=== PATIENT | male | born 1970 | race Caucasian/White ===

== ENCOUNTER 2017-09-17 12:59 | Emergency (ER) | payer MEDICARE, MEDICAID ==
[2017-09-17 12:59] VITALS: BMI 29.9
[2017-09-17 13:05] VITALS: RESP 18; TEMP 97; O2SAT 98
--- NOTE | 2017-09-17 13:58 | ED PDOC ---
HPI: Hypertension/Hypotension Time Seen by Provider: 09/17/17 13:26 Chief Complaint (Nursing): High Blood Pressure Chief Complaint (Provider): High Blood Pressure History Per: Patient History/Exam Limitations: no limitations Onset/Duration Of Symptoms: Days Current Symptoms Are (Timing): Still Present Additional Complaint(s): Gold Ambrose is a 47 year old male with a past medical history of diabetes who presents to the ED complaining of elevated blood pressure. Patient was referred from [facility] due to elevated blood pressure. Patient is newly diagnosed hypertensive. Confirms mild dizziness, denies chest pain, shortness of breath, weakness, or paresthesia. PMD: Yolande Momin MD Past Medical History Reviewed: Historical Data, Nursing Documentation, Vital Signs Vital Signs: Last Vital Signs Temp 97 F L 09/17/17 13:03 Pulse 73 09/17/17 13:03 Resp 18 09/17/17 13:03 BP 196/112 H 09/17/17 13:03 Pulse Ox 98 09/17/17 13:03 - Medical History PMH: Arthritis, Diabetes, HTN, Hypercholesterolemia, Chronic Kidney Disease - Surgical History Surgical History: No Surg Hx - Family History Family History: States: Diabetes - Home Medications Home Medications: Ambulatory Orders Medication Instructions Recorded Ammonium Lactate [Amlactin] 1 appl TOP DAILY #0 lot 07/15/15 Atorvastatin [Lipitor] 40 mg PO DAILY #0 tab 07/15/15 Brimonidine Tartrate [Alphagan P] 1 drop RIGHTEYE BID #0 lyubov 07/15/15 Ciprofloxacin 0.3% [Ciloxan 0.3% 0 drop TOP BID #0 bottle 07/15/15 Ophth SOLN] Diclofenac Sodium [Diclofenac 1 drop LEFTEYE TID #0 lyubov 07/15/15 Sodium 2.5 ml] Dorzolamide 2%/Timolol 0.5% 1 drop RIGHTEYE BID #0 bottle 07/15/15 [Cosopt 2%-0.5% Opht] Ergocalciferol (Vitamin D2) 50,000 unit PO QWK #0 cap 07/15/15 [Vitamin D2] Famotidine [Pepcid] 20 mg PO DAILY #0 tab 07/15/15 Furosemide [Lasix] 40 mg PO DAILY #0 tab 07/15/15 Insulin Lispro Mix 75/25 [HumaLOG 30 units SC Q12H #0 ml 07/15/15 Mix 75/25] Lisinopril/Hydrochlorothiazide 1 tab PO DAILY #0 tab 07/15/15 [Lisinopril-Hctz 20-12.5 mg Tab] Metoprolol Tartrate 25 mg PO BID 60 Days tab 07/15/15 amLODIPine [Norvasc] 10 mg PO DAILY #0 tab 07/15/15 Azithromycin [Zithromax Z-Winston] 250 mg PO DAILY #6 tab 07/31/15 Fluticasone Propionate [Flonase] 1 spr NS BID #1 bottle 07/31/15 - Allergies Allergies/Adverse Reactions: Allergies Allergy/AdvReac Type Severity Reaction Status Date / Time No Known Allergies Allergy Verified 07/31/15 14:24 Review of Systems ROS Statement: Except As Marked, All Systems Reviewed And Found Negative Constitutional: Positive for: Other (elevated blood pressure) Cardiovascular: Negative for: Chest Pain Respiratory: Negative for: Shortness of Breath Neurological: Positive for: Dizziness (mild). Negative for: Weakness, Other ( paresthesia) Physical Exam - Reviewed Nursing Documentation Reviewed: Yes Vital Signs Reviewed: Yes - Physical Exam Appears: Positive for: Well, Non-toxic, No Acute Distress Head Exam: Positive for: ATRAUMATIC, NORMAL INSPECTION, NORMOCEPHALIC Skin: Positive for: Normal Color, Warm, Dry Eye Exam: Positive for: EOMI, Normal appearance, PERRL Neck: Positive for: Normal, Painless ROM, Supple Cardiovascular/Chest: Positive for: Regular Rate, Rhythm. Negative for: Murmur Respiratory: Positive for: Normal Breath Sounds. Negative for: Respiratory Distress Gastrointestinal/Abdominal: Positive for: Normal Exam, Bowel Sounds, Soft. Negative for: Tenderness Back: Positive for: Normal Inspection. Negative for: L CVA Tenderness, R CVA Tenderness, Vertebral Tenderness Extremity: Positive for: Normal ROM. Negative for: Pedal Edema, Deformity Neurologic/Psych: Positive for: Alert, Oriented (AAO x3). Negative for: Motor/ Sensory Deficits - ECG O2 Sat by Pulse Oximetry: 98 (RA) Pulse Ox Interpretation: Normal Medical Decision Making Medical Decision Making: Time: 13:30 Initial Impression: Hypertension Plan: --Reevaluation Scribe Attestation: Documented by Jewel Guerrero acting as a scribe for Jonathon Caal MD. MD [place] Attestation: All medical record entries made by the Scribe were at my direction and personally dictated by me. I have reviewed the chart and agree that the record accurately reflects my personal performance of the history, physical exam, medical decision making, and the department course for this patient. I have also personally directed, reviewed, and agree with the discharge instructions and disposition. Disposition - Clinical Impression Clinical Impression: HTN (hypertension) - Patient ED Disposition Is Patient to be Admitted: No Counseled Patient/Family Regarding: Diagnosis, Need For Followup - Disposition Referrals: [facility] [Outside] Disposition: Routine/Home Disposition Time: 15:39 Condition: FAIR Instructions: Hypertension (ED) Forms: [employer] (Surinamese)
[2017-09-17 14:34] VITALS: BP 187/102; PULSE 72
== END 2017-09-17 14:17 | disposition home or self-care (01) ==
LOC: H.ER 12:59
DX: I12.9 Hypertensive chronic kidney disease with stage 1 through stage 4 chronic kidney disease, or unspecified chronic kidney disease (principal); E78.00 Pure hypercholesterolemia, unspecified; Z79.4 Long term (current) use of insulin

== ENCOUNTER 2017-11-14 12:08 | Emergency (ER) | payer MEDICARE, MEDICAID ==
[2017-11-14 12:09] VITALS: BMI 29.9
[2017-11-14 12:32] VITALS: BP 155/86; RESP 16; TEMP 97.6; O2SAT 100
[2017-11-14] MEDS ORDERED: Insulin Regular 100 units/ml IVP STA ×2 (13:06→14:20)
[2017-11-14] MEDS ORDERED: Sodium Chloride 0.9% 1,000 ML IV STA ×2 (13:06→13:08)
[2017-11-14] MEDS ORDERED: Insulin Regular 100 units/ml ONE (13:22)
[2017-11-14 13:36] LABS: ALB/GLOB RATIO 0.9 (1.0-2.1); ALBUMIN 3.5 g/dL (3.5-5.0); CALCIUM 8.4 mg/dL (8.4-10.2)
[2017-11-14 13:37] LABS: BASO # 0.1 K/uL (0.0-0.2); BASO % 1.2 % (0.0-2.0); EOS # 0.1 K/uL (0.0-0.7); EOS % 1.3 % (0.0-4.0); HEMOGLOBIN 11.3 g/dL (12.0-18.0); LYMPH % 10.6 % (20.0-40.0); MEAN CELL VOLUME 85.1 fl (80.0-94.0); MEAN CORPUSCULAR HGB CONC 31.7 g/dL (33.0-37.0); MEAN PLATELET VOLUME 9.4 fl (7.2-11.7); MONO # 0.7 K/uL (0.0-0.8); MONO % 6.8 % (0.0-10.0); NEUT # 7.9 K/uL (1.8-7.0); NEUT % 80.1 % (50.0-75.0); RBC 4.18 Mil/uL (4.40-5.90); RED CELL DISTRIBUTION WIDTH 13.9 % (11.5-14.5); WHITE BLOOD COUNT 9.9 K/uL (4.8-10.8)
[2017-11-14] MEDS ORDERED: Albuterol 0.083% Inhal Sol (2.5 mg/3 mL) UD INH STA (13:55)
[2017-11-14] MEDS ORDERED: Sod Polystyrene Sulf 15 gm/60 ml Susp PO ONE (13:56)
[2017-11-14 14:34] LABS: ABG ALLEN TEST YES; ARTERIAL BLOOD GAS HCO3 23.5 mmol/L (21-28); ARTERIAL BLOOD GAS O2 SAT 99.4 % (95-98); ARTERIAL BLOOD GAS PCO2 42 mm/Hg (35-45); ARTERIAL BLOOD GAS PH 7.36 (7.35-7.45); ARTERIAL BLOOD GAS PO2 83 mm/Hg (80-100)
--- NOTE | 2017-11-14 14:42 | ED PDOC ---
HPI: General Adult Time Seen by Provider: 11/14/17 12:53 Chief Complaint (Nursing): High Blood Sugar History Per: Patient Additional Complaint(s): Pt. states yesterday he was seen in [facility] and was found to have a FSBS of >500 and was advised to come to ED. Pt. states he had other obligations so he decided to come today instead. Offers no complaints at this time. Denies chest pain, SOB, palpitations, weakness, abdominal pain, N/V/D, fever, dysuria, polyuria. Past Medical History Reviewed: Historical Data, Nursing Documentation, Vital Signs Vital Signs: Last Vital Signs Temp 97.6 F 11/14/17 12:29 Pulse 78 11/14/17 14:45 Resp 16 11/14/17 12:29 BP 155/86 H 11/14/17 12:29 Pulse Ox 100 11/14/17 14:45 - Medical History PMH: Arthritis, Diabetes, HTN, Hypercholesterolemia, Chronic Kidney Disease - Family History Family History: States: Diabetes - Home Medications Home Medications: Ambulatory Orders Medication Instructions Recorded Aspirin [Ecotrin] 81 mg PO DAILY 11/14/17 GlipiZIDE [Glipizide] 10 mg PO BID #14 tab 11/14/17 Insulin Glargine, Recombina 30 unit SC DAILY 11/14/17 [Lantus] Lisinopril [Zestril] 30 mg PO DAILY 11/14/17 amLODIPine [Norvasc] 10 mg PO DAILY 11/14/17 - Allergies Allergies/Adverse Reactions: Allergies Allergy/AdvReac Type Severity Reaction Status Date / Time No Known Allergies Allergy Verified 07/31/15 14:24 Review of Systems ROS Statement: Except As Marked, All Systems Reviewed And Found Negative Physical Exam - Reviewed Nursing Documentation Reviewed: Yes Vital Signs Reviewed: Yes - Physical Exam Appears: Positive for: Well, Non-toxic, No Acute Distress Head Exam: Positive for: ATRAUMATIC, NORMAL INSPECTION, NORMOCEPHALIC Skin: Positive for: Normal Color, Warm. Negative for: Rash Eye Exam: Positive for: EOMI, Normal appearance, PERRL ENT: Positive for: Normal ENT Inspection Neck: Positive for: Normal, Painless ROM Cardiovascular/Chest: Positive for: Regular Rate, Rhythm Respiratory: Positive for: CNT, Normal Breath Sounds Gastrointestinal/Abdominal: Positive for: Normal Exam, Soft. Negative for: Tenderness Back: Positive for: Normal Inspection Extremity: Positive for: Normal ROM Neurologic/Psych: Positive for: Alert, Oriented - Laboratory Results Result Diagrams: 11/14/17 13:15 11/14/17 14:32 - ECG ECG: Positive for: Interpreted By Me ECG Rhythm: Positive for: Right Bundle Branch Block. Negative for: ST/T Changes Rate: 78 O2 Sat by Pulse Oximetry: 100 - Progress ED Course And Treament: Labs ordered. Insulin 10 units IVP, IV NS bolus x 2 ordered. Repeat FSBS: 336 Insulin 6 units IVP ordered. Pt. evaluated by Dr. Brown, FP resident, in ED who arranged clinic f/u for 11/19/17 and requests that pt. be prescribed glucotrol 10mg BID. Disposition - Clinical Impression Clinical Impression: Hyperglycemia - Patient ED Disposition Is Patient to be Admitted: No - Disposition Referrals: [facility] [Outside] Disposition: Routine/Home Disposition Time: 16:04 Condition: STABLE Prescriptions: GlipiZIDE [Glipizide] 10 mg PO BID #14 tab Instructions: Diabetic Hyperglycemia (ED) Forms: [employer] (Costa Rican) Print Language: DJIBOUTIAN
[2017-11-14 14:45] VITALS: PULSE 78
[2017-11-14 15:56] LABS: URINE BILIRUBIN NEGATIVE (NEGATIVE); URINE BLOOD NEGATIVE (NEGATIVE); URINE CLARITY SLIGHTY-CLOUDY (Clear); URINE COLOR STRAW (YELLOW); URINE GLUCOSE (UA) >=500 mg/dL (Normal); URINE LEUKOCYTE ESTERASE NEG Leu/uL (Negative); URINE NITRATE NEGATIVE (NEGATIVE); URINE PROTEIN 100 mg/dL (NEGATIVE); URINE UROBILINOGEN 0.2-1.0 mg/dL (0.2-1.0)
--- NOTE | 2017-11-15 09:09 | CARD ---
APPROVED REPORT EKG Measurement Heart [id number] <Conclusion> Normal sinus rhythm Right bundle branch block Left posterior fascicular block Bifascicular block T wave abnormality, consider inferolateral ischemia Abnormal ECG
== END 2017-11-14 16:33 | disposition home or self-care (01) ==
LOC: H.ER 12:08
DX: E11.65 Type 2 diabetes mellitus with hyperglycemia (principal); I12.9 Hypertensive chronic kidney disease with stage 1 through stage 4 chronic kidney disease, or unspecified chronic kidney disease; E78.00 Pure hypercholesterolemia, unspecified; I44.5 Left posterior fascicular block; Z79.4 Long term (current) use of insulin; Z79.82 Long term (current) use of aspirin
CPT/HCPCS: 36600; 80053; 81003; 82803; 82948; 84132; 85025; 93005; 96361; 96374; 96376; 99283; J7040

== ENCOUNTER 2017-11-28 17:25 | Emergency (ER) | payer MEDICARE, MEDICAID ==
[2017-11-28 17:25] VITALS: BMI 29.9
[2017-11-28 17:36] VITALS: TEMP 98.1; O2SAT 97
[2017-11-28] MEDS ORDERED: Sodium Chloride 0.9% 1,000 ML IV STA (18:59)
[2017-11-28] MEDS ORDERED: Insulin Regular 100 units/ml SC STA ×2 (18:59→20:47)
[2017-11-28 19:31] LABS: BASO # 0.1 K/uL (0.0-0.2); BASO % 0.8 % (0.0-2.0); EOS # 0.2 K/uL (0.0-0.7); EOS % 2.6 % (0.0-4.0); HEMOGLOBIN 10.8 g/dL (12.0-18.0); LYMPH # 1.1 K/uL (1.0-4.3); LYMPH % 13.2 % (20.0-40.0); MEAN CELL VOLUME 84.2 fl (80.0-94.0); MEAN CORPUSCULAR HEMOGLOBIN 26.8 pg (27.0-31.0); MEAN CORPUSCULAR HGB CONC 31.8 g/dL (33.0-37.0); MEAN PLATELET VOLUME 9.3 fl (7.2-11.7); MONO # 0.8 K/uL (0.0-0.8); MONO % 10.2 % (0.0-10.0); NEUT % 73.2 % (50.0-75.0); RBC 4.03 Mil/uL (4.40-5.90); RED CELL DISTRIBUTION WIDTH 13.9 % (11.5-14.5); WHITE BLOOD COUNT 8.2 K/uL (4.8-10.8)
[2017-11-28 19:45] LABS: URINE BILIRUBIN NEGATIVE (NEGATIVE); URINE BLOOD SMALL (NEGATIVE); URINE CLARITY CLEAR (Clear); URINE COLOR STRAW (YELLOW); URINE GLUCOSE (UA) >=500 mg/dL (Normal); URINE LEUKOCYTE ESTERASE NEG Leu/uL (Negative); URINE NITRATE NEGATIVE (NEGATIVE); URINE PROTEIN 100 mg/dL (NEGATIVE); URINE UROBILINOGEN 0.2-1.0 mg/dL (0.2-1.0)
[2017-11-28 19:56] VITALS: RESP 21
[2017-11-28 19:58] LABS: ALB/GLOB RATIO 0.9 (1.0-2.1); ALBUMIN 3.4 g/dL (3.5-5.0); CALCIUM 8.3 mg/dL (8.4-10.2)
[2017-11-28] MEDS ORDERED: Insulin Regular 100 units/ml ONE (20:51)
--- NOTE | 2017-11-28 21:17 | ED PDOC ---
Hyperglycemia/Hypoglycemia Time Seen by Provider: 11/28/17 17:45 Chief Complaint (Nursing): High Blood Sugar Chief Complaint (Provider): high blood suger History Per: Patient History/Exam Limitations: no limitations Onset/Duration Of Symptoms: Days (11/28/17) Current Symptoms Are (Timing): Better : The patient does not have any of the infectious symptoms listed except for those marked. Additional Complaint(s): Gold Ambrose, a 47 year old male with a history of hypertension and diabetes presents to the ED complaining of high blood sugar onset today morning. Feels fine but occasionally feels light lightheadedness. PMD: Yolande Momin Past Medical History Reviewed: Historical Data, Nursing Documentation, Vital Signs Vital Signs: Last Vital Signs Temp 98.1 F 11/28/17 17:30 Pulse 77 11/28/17 19:55 Resp 21 11/28/17 19:55 BP 150/86 11/28/17 19:55 Pulse Ox 97 11/28/17 19:55 - Medical History PMH: Arthritis, Diabetes, HTN, Hypercholesterolemia, Chronic Kidney Disease - Surgical History Surgical History: No Surg Hx - Family History Family History: States: Diabetes - Social History Current smoker - smoking cessation education provided: No Alcohol: None Drugs: Denies - Home Medications Home Medications: Ambulatory Orders Medication Instructions Recorded Aspirin [Ecotrin] 81 mg PO DAILY 11/14/17 Blood Sugar Diagnostic [Test 1 each MC DAILY #30 strip 11/14/17 Strips] GlipiZIDE [Glipizide] 10 mg PO BID #14 tab 11/14/17 Insulin Glargine, Recombina 30 unit SC DAILY 11/14/17 [Lantus] Lancets 1 each MC DAILY #30 each 11/14/17 Lisinopril [Zestril] 30 mg PO DAILY 11/14/17 amLODIPine [Norvasc] 10 mg PO DAILY 11/14/17 - Allergies Allergies/Adverse Reactions: Allergies Allergy/AdvReac Type Severity Reaction Status Date / Time No Known Allergies Allergy Verified 07/31/15 14:24 Review of Systems ROS Statement: Except As Marked, All Systems Reviewed And Found Negative Neurological: Positive for: Other (light lightheadedness) Physical Exam - Reviewed Nursing Documentation Reviewed: Yes Vital Signs Reviewed: Yes - Physical Exam Appears: Positive for: Well, Non-toxic, No Acute Distress Head Exam: Positive for: ATRAUMATIC, NORMAL INSPECTION, NORMOCEPHALIC Skin: Positive for: Normal Color, Warm, Dry Eye Exam: Positive for: EOMI, Normal appearance, PERRL ENT: Positive for: Normal ENT Inspection Neck: Positive for: Normal, Painless ROM, Supple. Negative for: Decreased ROM Cardiovascular/Chest: Positive for: Regular Rate, Rhythm. Negative for: Murmur , Bradycardia Respiratory: Positive for: Normal Breath Sounds. Negative for: Decreased Breath Sounds, Accessory Muscle Use, Respiratory Distress Gastrointestinal/Abdominal: Positive for: Normal Exam, Bowel Sounds, Soft. Negative for: Tenderness Back: Positive for: Normal Inspection. Negative for: L CVA Tenderness, R CVA Tenderness Extremity: Positive for: Normal ROM. Negative for: Tenderness, Pedal Edema, Deformity Neurologic/Psych: Positive for: Alert, Oriented (x3), Gait - Laboratory Results Result Diagrams: 11/28/17 19:28 11/28/17 19:28 - ECG O2 Sat by Pulse Oximetry: 97 (RA) Pulse Ox Interpretation: Normal Medical Decision Making Medical Decision Making: Time: 15:56 Initial Plan: hgyperglycemia --CMP --CBC --Insulin Human Regular 4 units -- Insulin Human Regular 6 units --Normal Saline 999 mls/hr --Urine Culture --Urinalysis --Reevaluation Time: 21:18 --sugar was above 500 --patient was given fluids and insulin -sugar came down. the anion gap was normal. no obvious infection. pt feels better. requesting to eat and be dc. will dc w mother. explained need to follow up as outpt. Documented by Jonnathan Amaya acting as a scribe for Ray Broussard MD. All medical record entries made by the Scribe were at my direction and personally dictated by me. I have reviewed the chart and agree that the record accurately reflects my personal performance of the history, physical exam, medical decision making, and the department course for this patient. I have also personally directed, reviewed, and agree with the discharge instructions and disposition. Disposition - Clinical Impression Clinical Impression: Hyperglycemia - Patient ED Disposition Is Patient to be Admitted: No Counseled Patient/Family Regarding: Studies Performed, Diagnosis, Need For Followup - Disposition Disposition: Routine/Home Disposition Time: 19:45 Condition: IMPROVED Additional Instructions: FOLLOW UP WITH YOUR PRIMARY DOCTOR IN 1-2 DAYS RETURN TO THE ED WITH ANY WORSENING OR CONCERNING SYMPTOMS Instructions: Diabetic Hyperglycemia (ED) Forms: [employer] (Slovenian)
[2017-11-28 22:34] VITALS: BP 172/100; PULSE 75
== END 2017-11-28 22:34 | disposition home or self-care (01) ==
LOC: H.ER 17:25
DX: E11.22 Type 2 diabetes mellitus with diabetic chronic kidney disease (principal); I12.9 Hypertensive chronic kidney disease with stage 1 through stage 4 chronic kidney disease, or unspecified chronic kidney disease; N18.9 Chronic kidney disease, unspecified; E11.65 Type 2 diabetes mellitus with hyperglycemia; Z79.4 Long term (current) use of insulin; Z79.82 Long term (current) use of aspirin; E78.00 Pure hypercholesterolemia, unspecified
CPT/HCPCS: 80053; 81003; 82948; 85025; 87086; 96372; 99284; J7040

== ENCOUNTER 2017-11-30 11:16 | Emergency (ER) | payer MEDICARE, MEDICAID ==
[2017-11-30] MEDS ORDERED: Insulin Regular 100 units/ml SC STA (11:20)
[2017-11-30 11:23] VITALS: BP 161/92; PULSE 79; RESP 19; TEMP 97.7; O2SAT 99
--- NOTE | 2017-11-30 11:23 | ED PDOC ---
HPI: General Adult Time Seen by Provider: 11/30/17 11:19 History Per: Patient Onset/Duration Of Symptoms: Hrs (1) Severity: Mild Additional Complaint(s): Referred from cardiology. Underwent stress test, asymptomatic. Denies dizziness , chest pain or SOB. Accucheck at termination of stress test 489. Did not take Insulin this AM Past Medical History Vital Signs: Last Vital Signs Temp 97.7 F 11/30/17 11:21 Pulse 79 11/30/17 11:21 Resp 19 11/30/17 11:21 BP 161/92 H 11/30/17 11:21 Pulse Ox 99 11/30/17 11:21 - Medical History PMH: Arthritis, Diabetes, HTN, Hypercholesterolemia, Chronic Kidney Disease - Family History Family History: States: Diabetes - Home Medications Home Medications: Ambulatory Orders Medication Instructions Recorded Aspirin [Ecotrin] 81 mg PO DAILY 11/14/17 Blood Sugar Diagnostic [Test 1 each MC DAILY #30 strip 11/14/17 Strips] GlipiZIDE [Glipizide] 10 mg PO BID #14 tab 11/14/17 Insulin Glargine, Recombina 30 unit SC DAILY 11/14/17 [Lantus] Lancets 1 each MC DAILY #30 each 11/14/17 Lisinopril [Zestril] 30 mg PO DAILY 11/14/17 amLODIPine [Norvasc] 10 mg PO DAILY 11/14/17 - Allergies Allergies/Adverse Reactions: Allergies Allergy/AdvReac Type Severity Reaction Status Date / Time No Known Allergies Allergy Verified 07/31/15 14:24 Review of Systems ROS Statement: Except As Marked, All Systems Reviewed And Found Negative Cardiovascular: Negative for: Chest Pain Neurological: Negative for: Dizziness Physical Exam - Reviewed Nursing Documentation Reviewed: Yes Vital Signs Reviewed: Yes - Physical Exam Appears: Positive for: Non-toxic, No Acute Distress Head Exam: Positive for: ATRAUMATIC, NORMAL INSPECTION, NORMOCEPHALIC Skin: Positive for: Normal Color, Warm, DRY Eye Exam: Positive for: EOMI, Normal appearance, PERRL ENT: Positive for: Normal ENT Inspection Neck: Positive for: Normal, Painless ROM Cardiovascular/Chest: Positive for: Regular Rate, Rhythm Respiratory: Positive for: CNT, Normal Breath Sounds Gastrointestinal/Abdominal: Positive for: Normal Exam, Bowel Sounds, Soft Back: Positive for: Normal Inspection Extremity: Positive for: Normal ROM Neurologic/Psych: Positive for: Alert, Oriented Disposition - Clinical Impression Clinical Impression: Hyperglycemia - Patient ED Disposition Is Patient to be Admitted: No Counseled Patient/Family Regarding: Diagnosis, Need For Followup - Disposition Referrals: [facility] [Outside] Disposition: Routine/Home Disposition Time: 12:56 Condition: FAIR Instructions: Hyperglycemia, Adult
[2017-11-30] MEDS: Sodium Chloride 0.9% 1,000 ML IV STA ×2 (11:36→11:41)
== END 2017-11-30 15:11 | disposition home or self-care (01) ==
LOC: H.ER 11:16
DX: E11.65 Type 2 diabetes mellitus with hyperglycemia (principal); I12.9 Hypertensive chronic kidney disease with stage 1 through stage 4 chronic kidney disease, or unspecified chronic kidney disease; N18.9 Chronic kidney disease, unspecified; E78.00 Pure hypercholesterolemia, unspecified

== ENCOUNTER 2019-01-31 16:36 | Inpatient (IN) | payer MEDICARE, MEDICAID ==
--- NOTE | 2019-01-31 17:42 | RAD ---
Date of service: 01/31/2019 HISTORY: cough fever COMPARISON: 07/31/2015. FINDINGS: LUNGS: The lungs are well inflated and clear. PLEURA: No pleural effusions or pneumothorax. CARDIOVASCULAR: There is mild cardiomegaly. No aortic atherosclerotic calcifications present. OSSEOUS STRUCTURES: Within normal limits for the patient's age. VISUALIZED UPPER ABDOMEN: Normal. OTHER FINDINGS: None. IMPRESSION: No active pulmonary disease.
--- NOTE | 2019-01-31 18:04 | ED PDOC ---
HPI: General Adult Time Seen by Provider: 01/31/19 16:51 Chief Complaint (Nursing): Dizziness/Lightheaded Chief Complaint (Provider): Flu-like illness History Per: Patient Onset/Duration Of Symptoms: Days (x3) Current Symptoms Are (Timing): Still Present Additional Complaint(s): 48 year old male with a history of htn and diabetes presents to the ED with a flu-like illness. Patient reports he has been having cough, runny nose, sore throat, weakness, headache, chills and body aches for 3 days. He states he felt the most weak today, prompting him to present to the ED. Patient thinks one of h is boxers may have given him the illness because he had similar symptoms a week ago. He has loss of appetite, but he denies any vomiting, diarrhea, chest pain or difficulty breathing. Patient has chronic leg swelling due to hypertension that is unchanged. PMD: [facility] Past Medical History Reviewed: Historical Data, Nursing Documentation, Vital Signs Vital Signs: Last Vital Signs Temp 100.6 F H 01/31/19 16:39 Pulse 90 01/31/19 16:39 Resp 16 01/31/19 16:39 BP 191/83 H 01/31/19 16:39 Pulse Ox 96 01/31/19 16:39 - Medical History PMH: Arthritis, Diabetes, HTN, Hypercholesterolemia, Chronic Kidney Disease - Family History Family History: States: Diabetes, Hypertension - Social History Current smoker - smoking cessation education provided: No Ex-Smoker (has not smoked in the last 12 months): No Alcohol: None Drugs: Denies - Home Medications Home Medications: Ambulatory Orders Medication Instructions Recorded Lisinopril [Zestril] 30 mg PO DAILY 11/14/17 amLODIPine [Norvasc] 10 mg PO DAILY 11/14/17 Furosemide [Lasix] 40 mg PO BID 01/31/19 Glipizide [Glipizide ER] 10 mg PO BID 01/31/19 Insulin Lispro Mix 75/25 [HumaLOG 01/31/19 Mix 75/25] SITagliptin [Januvia] 25 mg PO DAILY 01/31/19 - Allergies Allergies/Adverse Reactions: Allergies Allergy/AdvReac Type Severity Reaction Status Date / Time No Known Allergies Allergy Verified 07/31/15 14:24 Review of Systems ROS Statement: Except As Marked, All Systems Reviewed And Found Negative Constitutional: Positive for: Chills, Weakness, Other (body aches) ENT: Positive for: Throat Pain, Other (runny nose) Cardiovascular: Negative for: Chest Pain Respiratory: Positive for: Cough. Negative for: Shortness of Breath Gastrointestinal: Negative for: Nausea, Vomiting, Diarrhea Musculoskeletal: Positive for: Other (chronic leg swelling) Neurological: Positive for: Headache Physical Exam - Reviewed Nursing Documentation Reviewed: Yes Vital Signs Reviewed: Yes - Physical Exam Appears: Positive for: No Acute Distress (tired appearing, febrile) Head Exam: Positive for: ATRAUMATIC, NORMOCEPHALIC Skin: Positive for: Warm, Dry Eye Exam: Positive for: EOMI, PERRL, Conjunctival injection ENT: Positive for: Pharynx Is (clear), Other (tacky mucous membranes) Neck: Positive for: Painless ROM, Supple Cardiovascular/Chest: Positive for: Tachycardia, Other (regular rhythm) Respiratory: Positive for: Normal Breath Sounds. Negative for: Respiratory Distress Gastrointestinal/Abdominal: Positive for: Soft. Negative for: Tenderness Back: Positive for: Normal Inspection. Negative for: Decreased ROM Extremity: Positive for: Pedal Edema (1+ bilateral pitting edema). Negative for: Deformity Lymphatic: Negative for: Adenopathy Neurological/Psych: Positive for: Awake, Alert, Oriented (x3), Other (lethargic ). Negative for: Motor/Sensory Deficits - Laboratory Results Result Diagrams: 02/02/19 04:30 02/02/19 04:30 - ECG O2 Sat by Pulse Oximetry: 96 (RA) Pulse Ox Interpretation: Normal Medical Decision Making Medical Decision Making: Time: 1711 Impression: flu-like illness Differentials include: influenza, pneumonia, sepsis, viral illness, dehydration Plan: --VBG --BNP --CMP --Magnesium --Phosphorus --u dip --CBC --PTT --PT/INR --CXR --Glucose --Tamiflu --Toradol --Tylenol --Blood culture --Influenza Time: 1737 CXR:FINDINGS: LUNGS: The lungs are well inflated and clear. PLEURA: No pleural effusions or pneumothorax. CARDIOVASCULAR: There is mild cardiomegaly. No aortic atherosclerotic calcifications present. OSSEOUS STRUCTURES: Within normal limits for the patient's age. VISUALIZED UPPER ABDOMEN: Normal. OTHER FINDINGS: None. IMPRESSION: No active pulmonary disease. Time: 1999 --Lab work demonstrated worsening renal function, in addition to kidney insufficiency. Markedly increased pro-BNP. Concerned for fluid overload and or CHF. Patient to be hospitalized for further management. Case discussed with Dr. Redmond for clinic coverage. ScribeAttestation: Documented byNat Schafer, acting as a scribe for Jannet Munoz MD. Provider ScribeAttestation: All medical record entries made by the Scribe were at my direction and personally dictated by me. I have reviewed the chart and agree that the record accurately reflects my personal performance of the history, physical exam, medi chi decision making, and the department course for this patient. I have also personally directed, reviewed, and agree with the discharge instructions and disposition. Disposition - Clinical Impression Clinical Impression: Acute on chronic systolic congestive heart failure, Acute kidney injury (nontraumatic), URI (upper respiratory infection) Counseled Patient/Family Regarding: Studies Performed, Diagnosis - Disposition Disposition Time: 20:00 Condition: FAIR - Pt Status Changed To: Hospital Disposition Of: Inpatient - Admit Certification Admit to Inpatient:: After my assessment, the patient will require hospitalization for at least two midnights. This is because of the severity of symptoms shown, intensity of services needed, and/or the medical risk in this patient being treated as an outpatient. - POA Present On Arrival: None
[2019-01-31 18:20] LABS: BASO # 0.1 K/uL (0.0-0.2); BASO % 0.7 % (0.0-2.0); EOS % 0.4 % (0.0-4.0); HEMOGLOBIN 10.6 g/dL (12.0-18.0); LYMPH # 0.4 K/uL (1.0-4.3); MEAN CELL VOLUME 78.3 fl (80.0-94.0); MEAN CORPUSCULAR HEMOGLOBIN 24.9 pg (27.0-31.0); MEAN CORPUSCULAR HGB CONC 31.8 g/dL (33.0-37.0); MEAN PLATELET VOLUME 8.8 fl (7.2-11.7); MONO # 0.8 K/uL (0.0-0.8); MONO % 8.7 % (0.0-10.0); NEUT # 8.1 K/uL (1.8-7.0); NEUT % 86.2 % (50.0-75.0); PLATELET COUNT 256 K/uL (130-400); RBC 4.27 Mil/uL (4.40-5.90); RED CELL DISTRIBUTION WIDTH 17.8 % (11.5-14.5); WHITE BLOOD COUNT 9.3 K/uL (4.8-10.8)
[2019-01-31 18:26] LABS: VENOUS BLOOD GAS BASE EXCESS -3.1 mmol/L (0.0-2.0); VENOUS BLOOD GAS PCO2 39 mmHg (40-60); VENOUS BLOOD GAS PO2 44 mm/Hg (30-55); VENOUS BLOOD PH 7.36 (7.32-7.43)
[2019-01-31 18:27] LABS: INR 1.3; PROTHROMBIN TIME 14.6 Seconds (9.8-13.1)
[2019-01-31 18:30] LABS: PARTIAL THROMBOPLASTIN TIME 36.7 Seconds (25.6-37.1)
[2019-01-31 18:33] LABS: ALB/GLOB RATIO 0.9 (1.0-2.1); ALBUMIN 3.3 g/dL (3.5-5.0); CALCIUM 8.3 mg/dL (8.4-10.2)
[2019-01-31 18:54] LABS: ANISOCYTOSIS SLIGHT; BASOPHIL 1 % (0-2); LYMPHOCYTE 5 % (20-50); MONOCYTE 7 % (0-10); NEUTROPHIL 87 % (42-75); PLATELET ESTIMATE NORMAL (NORMAL); TOTAL CELLS COUNTED 100
--- NOTE | 2019-01-31 20:57 | CP.PCM.HP ---
History of Present Illness - History of Present Illness History of Present Illness: 48 year old male with PMH of uncontrolled HTN and diabetes presents to the ED accompanied by mom with a flu-like symptoms. Patient seems to have a developmental delay per mother, hx taken mostly form mother. Patient reports he has been having cough, runny nose, sore throat, weakness, headache, chills and body aches for 3 days. 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 He also reports decrease appetite but he denies any vomiting, diarrhea, chest pain or difficulty breathing. Per chart review he has chronic leg swelling that is unchanged. Lab work demonstrated worsening renal function, markedly increased pro-BNP. Concerned for fluid overload and or CHF. PMD: NHC PMH: Arthritis, Diabetes, HTN, Hypercholesterolemia, CKD stage 4 FMH: DM and HTN Meds as bellow NKDA PSH: denies SH: denies eoth, tobacco, ilicit drugs Present on Admission - Present on Admission Any Indicators Present on Admission: No Review of Systems - Review of Systems All systems: reviewed and no additional remarkable complaints except (HPI) Past Patient History - Infectious Disease Hx of Infectious Diseases: None - Past Social History Alcohol: None Drugs: Denies - CARDIAC Hx Hypercholesterolemia: Yes Hx Hypertension: Yes - HEENT Hx HEENT Problems: Yes Hx Cataracts: Yes - RENAL Hx Chronic Kidney Disease: Yes - ENDOCRINE/METABOLIC Hx Endocrine Disorders: Yes Hx Diabetes Mellitus Type 1: Yes Hx Diabetes Mellitus Type 2: Yes - MUSCULOSKELETAL/RHEUMATOLOGICAL Hx Arthritis: Yes - PSYCHIATRIC Hx Psychophysiologic Disorder: No Hx Substance Use: No - SURGICAL HISTORY Hx Surgeries: No - ANESTHESIA Hx Anesthesia: No Meds Allergies/Adverse Reactions: Allergies Allergy/AdvReac Type Severity Reaction Status Date / Time No Known Allergies Allergy Verified 07/31/15 14:24 Physical Exam - Constitutional Appears: No Acute Distress - Head Exam Head Exam: NORMAL INSPECTION - Eye Exam Eye Exam: EOMI, PERRL - Respiratory Exam Respiratory Exam: Clear to Auscultation Bilateral, NORMAL BREATHING PATTERN. absent: Rales, Wheezes, Respiratory Distress - Cardiovascular Exam Cardiovascular Exam: REGULAR RHYTHM, +S1, +S2. absent: Tachycardia - GI/Abdominal Exam GI & Abdominal Exam: Normal Bowel Sounds, Soft. absent: Distended, Tenderness - Extremities Exam Extremities exam: Positive for: pedal edema (3+ pitting). Negative for: calf tenderness - Neurological Exam Neurological exam: Alert, CN II-XII Intact, Oriented x3 - Skin Skin Exam: Normal Color, Warm Results - Vital Signs Recent Vital Signs: Last Vital Signs Temp 100.6 F H 01/31/19 16:39 Pulse 90 01/31/19 16:39 Resp 16 01/31/19 16:39 BP 160/90 H 01/31/19 19:40 Pulse Ox 96 01/31/19 20:37 - Labs Result Diagrams: 01/31/19 18:00 01/31/19 18:00 Labs: Laboratory Results - last 24 hr 01/31/19 01/31/19 01/31/19 17:12 17:16 18:00 WBC 9.3 RBC 4.27 L Hgb 10.6 L Hct 33.4 L MCV 78.3 L D MCH 24.9 L MCHC 31.8 L RDW 17.8 H Plt Count 256 MPV 8.8 Neut % (Auto) 86.2 H Lymph % (Auto) 4.0 L Treasure % (Auto) 8.7 Eos % (Auto) 0.4 Baso % (Auto) 0.7 Neut # (Auto) 8.1 H Lymph # (Auto) 0.4 L Treasure # (Auto) 0.8 Eos # (Auto) 0.0 Baso # (Auto) 0.1 Neutrophils % (Manual) 87 H Lymphocytes % (Manual) 5 L Monocytes % (Manual) 7 Basophils % (Manual) 1 Platelet Estimate Normal Anisocytosis (manual) Slight PT INR APTT pO2 VBG pH VBG pCO2 VBG HCO3 VBG Total CO2 VBG O2 Sat (Calc) VBG Base Excess VBG Potassium Glucose Lactate FiO2 Sodium Potassium Chloride Carbon Dioxide Anion Gap BUN Creatinine Est GFR ( Amer) Est GFR (Non-Af Amer) POC Glucose (mg/dL) 169 H Random Glucose Calcium Phosphorus Magnesium Total Bilirubin AST ALT Alkaline Phosphatase Troponin I NT-Pro-B Natriuret Pep Total Protein Albumin Globulin Albumin/Globulin Ratio Venous Blood Potassium Influenza Typ A,B (EIA) Negative for flu a/b 01/31/19 01/31/19 01/31/19 18:00 18:00 18:00 WBC RBC Hgb Hct MCV MCH MCHC RDW Plt Count MPV Neut % (Auto) Lymph % (Auto) Treasure % (Auto) Eos % (Auto) Baso % (Auto) Neut # (Auto) Lymph # (Auto) Treasure # (Auto) Eos # (Auto) Baso # (Auto) Neutrophils % (Manual) Lymphocytes % (Manual) Monocytes % (Manual) Basophils % (Manual) Platelet Estimate Anisocytosis (manual) PT 14.6 H INR 1.3 APTT 36.7 pO2 VBG pH VBG pCO2 VBG HCO3 VBG Total CO2 VBG O2 Sat (Calc) VBG Base Excess VBG Potassium Glucose Lactate FiO2 Sodium 136 Potassium 4.4 Chloride 104 Carbon Dioxide 22 Anion Gap 14 BUN 48 H Creatinine 4.6 H Est GFR ( Amer) 17 Est GFR (Non-Af Amer) 14 POC Glucose (mg/dL) Random Glucose 176 H Calcium 8.3 L Phosphorus 4.2 Magnesium 1.6 Total Bilirubin 0.4 AST 18 ALT 12 L D Alkaline Phosphatase 126 D Troponin I 0.0610 NT-Pro-B Natriuret Pep 21430 H Total Protein 7.2 Albumin 3.3 L Globulin 3.9 Albumin/Globulin Ratio 0.9 L Venous Blood Potassium Influenza Typ A,B (EIA) 01/31/19 18:08 WBC RBC Hgb Hct MCV MCH MCHC RDW Plt Count MPV Neut % (Auto) Lymph % (Auto) Treasure % (Auto) Eos % (Auto) Baso % (Auto) Neut # (Auto) Lymph # (Auto) Treasure # (Auto) Eos # (Auto) Baso # (Auto) Neutrophils % (Manual) Lymphocytes % (Manual) Monocytes % (Manual) Basophils % (Manual) Platelet Estimate Anisocytosis (manual) PT INR APTT pO2 44 VBG pH 7.36 VBG pCO2 39 L VBG HCO3 22.0 VBG Total CO2 23.2 VBG O2 Sat (Calc) 86.3 H VBG Base Excess -3.1 L VBG Potassium 4.4 Glucose 178 H Lactate 0.8 FiO2 21.0 Sodium 135.0 Potassium Chloride 105.0 Carbon Dioxide Anion Gap BUN Creatinine Est GFR ( Amer) Est GFR (Non-Af Amer) POC Glucose (mg/dL) Random Glucose Calcium Phosphorus Magnesium Total Bilirubin AST ALT Alkaline Phosphatase Troponin I NT-Pro-B Natriuret Pep Total Protein Albumin Globulin Albumin/Globulin Ratio Venous Blood Potassium 4.4 Influenza Typ A,B (EIA) Assessment & Plan - Assessment and Plan (Free Text) Assessment: 48 year old male with PMH of uncontrolled HTN and diabetes admitted for evaluation of worsening renal function, and markedly elevated PBNP to r/o CHF. Concerned for fluid overload. Plan: Viral syndrome. - flu like sx - afebrile now, wbc wnl - flu negative - CXR: negative for acute lung disease - tylenol prn for pain or headache - Robitussin - f/u labs in am CKD stage 4, worsening - Bun/Cr: 48/4.6, ( last Cr 4.2 on 12/27/18 at [facility], previous one on 10/2018 was 3.8) - Renal US 03/2018: unremarkable - Nephro consulted, recs appreciated - held lisinopril and lasix for now - labs in am Markedly elevated PBNP, r/o CHF vs fluid overload Chronic leg edema - PBNP: 15,800 - echo 07/14/15: LVEF 45%, LV mild systolic/diastolic function impairment - Stress test 03/2018: non diagnostic, poor exercise tolerance. - CXR: cardiomegaly - Cardio consulted, recs appreciated - lasix held for now due to renal impairment - f/u labs and echo in am HTN - uncontrolled, no complaint with treatment - hold norvasc, lisinopril - start hydralazine TID - Cardio consulted IDDM, uncontrolled - Hold PO meds - continue Humolog - SS coverage - acuchecks DVT ppx - heparin BID Case seen/discussed with Dr Redmond
[2019-01-31] MEDS: Insulin Lispro (humaLOG) 100 Units/ml Inj SC SCH (22:36)
[2019-02-01] MEDS: guaiFENesin 100 mg/5 ml Syrup UD PO PRN ×4 (03:16→21:21)
[2019-02-01 06:02] LABS: BASO # 0.1 K/uL (0.0-0.2); BASO % 0.8 % (0.0-2.0); EOS # 0.2 K/uL (0.0-0.7); EOS % 2.8 % (0.0-4.0); HEMOGLOBIN 9.7 g/dL (12.0-18.0); LYMPH # 0.6 K/uL (1.0-4.3); LYMPH % 9.9 % (20.0-40.0); MEAN CELL VOLUME 79.2 fl (80.0-94.0); MEAN CORPUSCULAR HEMOGLOBIN 25.3 pg (27.0-31.0); MEAN CORPUSCULAR HGB CONC 31.9 g/dL (33.0-37.0); MONO # 0.9 K/uL (0.0-0.8); MONO % 15.3 % (0.0-10.0); NEUT # 4.4 K/uL (1.8-7.0); NEUT % 71.2 % (50.0-75.0); NRBC % 0.1 % (0.0-0.0); RBC 3.85 Mil/uL (4.40-5.90); RED CELL DISTRIBUTION WIDTH 18.4 % (11.5-14.5); WHITE BLOOD COUNT 6.2 K/uL (4.8-10.8)
[2019-02-01 06:32] LABS: ALB/GLOB RATIO 0.9 (1.0-2.1)
[2019-02-01] MEDS: Insulin Lispro (humaLOG) 100 Units/ml Inj SC SCH ×4 (08:26→23:46)
[2019-02-01] MEDS: Insulin Lispro Mix 75/25 100 units/ml (HumaLog) 10ml SC SCH (08:27)
--- NOTE | 2019-02-01 09:26 | CARD ---
APPROVED REPORT Date of service: 01/31/2019 EKG Measurement Heart [id number] <Conclusion> Normal sinus rhythm Right bundle branch block Left posterior fascicular block Bifascicular block T wave abnormality, consider inferolateral ischemia Abnormal ECG
--- NOTE | 2019-02-01 09:38 | CP.PCM.CON ---
History of Present Illness - History of Present Illness History of Present Illness: 48 y/o male admitted with CHF I50.23 Pt has had Cough, Flu-like Sx,runny nose, sore throat, weakness, headache, chills and body aches for 3 days. Patient has chronic leg swelling for months; he had been on lasix but stopped it! Pt now has 2-3 + pitting edema EKG: CRBBB Troponin: neg BNP:15,800 BUN: 51 Creatinine: 4.9 PMH: Arthritis, Diabetes, HTN, Hypercholesterolemia, CKD stage 4 Past Patient History - Infectious Disease Hx of Infectious Diseases: None - Past Medical History & Family History Past Medical History?: Yes - Past Social History Alcohol: None Drugs: Denies - CARDIAC Hx Hypercholesterolemia: Yes Hx Hypertension: Yes - HEENT Hx HEENT Problems: Yes Hx Cataracts: Yes - RENAL Hx Chronic Kidney Disease: Yes - ENDOCRINE/METABOLIC Hx Endocrine Disorders: Yes Hx Diabetes Mellitus Type 1: Yes Hx Diabetes Mellitus Type 2: Yes - MUSCULOSKELETAL/RHEUMATOLOGICAL Hx Arthritis: Yes - PSYCHIATRIC Hx Psychophysiologic Disorder: No Hx Substance Use: No - SURGICAL HISTORY Hx Surgeries: No - ANESTHESIA Hx Anesthesia: No Meds Allergies/Adverse Reactions: Allergies Allergy/AdvReac Type Severity Reaction Status Date / Time No Known Allergies Allergy Verified 07/31/15 14:24 - Medications Medications: Current Medications Acetaminophen (Tylenol 325mg Tab) 650 mg PO Q6 PRN PRN Reason: Fever >100.4 F Furosemide (Lasix) 40 mg IVP BID NORM Guaifenesin (Robitussin) 100 mg PO Q4 PRN PRN Reason: Cough Last Admin: 02/01/19 08:25 Dose: 100 mg Heparin Sodium (Porcine) (Heparin) 5,000 units SC Q12 [facility]; Protocol Last Admin: 02/01/19 08:28 Dose: 5,000 units Hydralazine HCl (Apresoline) 25 mg PO TID [facility] Last Admin: 02/01/19 08:27 Dose: 25 mg Insulin Human Lispro (Humalog) 0 units SC ACCU-CHECK [facility]; Protocol Last Admin: 02/01/19 08:26 Dose: 1 units Insulin Lispro Protam/Lispro Human (Humalog Mix 75/25) 25 units SC DAILY [facility] Last Admin: 02/01/19 08:27 Dose: 25 units Results - Vital Signs Recent Vital Signs: Last Vital Signs Temp 97.7 F 02/01/19 08:43 Pulse 67 02/01/19 09:00 Resp 20 02/01/19 08:43 BP 186/99 H 02/01/19 08:43 Pulse Ox 99 02/01/19 08:43 - Labs Result Diagrams: 02/01/19 04:25 02/01/19 04:25 Labs: Laboratory Results - last 24 hr 01/31/19 01/31/19 01/31/19 17:12 17:16 18:00 WBC 9.3 RBC 4.27 L Hgb 10.6 L Hct 33.4 L MCV 78.3 L D MCH 24.9 L MCHC 31.8 L RDW 17.8 H Plt Count 256 MPV 8.8 Neut % (Auto) 86.2 H Lymph % (Auto) 4.0 L Levy % (Auto) 8.7 Eos % (Auto) 0.4 Baso % (Auto) 0.7 Neut # (Auto) 8.1 H Lymph # (Auto) 0.4 L Levy # (Auto) 0.8 Eos # (Auto) 0.0 Baso # (Auto) 0.1 Neutrophils % (Manual) 87 H Lymphocytes % (Manual) 5 L Monocytes % (Manual) 7 Basophils % (Manual) 1 Platelet Estimate Normal Anisocytosis (manual) Slight PT INR APTT pO2 VBG pH VBG pCO2 VBG HCO3 VBG Total CO2 VBG O2 Sat (Calc) VBG Base Excess VBG Potassium Glucose Lactate FiO2 Sodium Potassium Chloride Carbon Dioxide Anion Gap BUN Creatinine Est GFR ( Amer) Est GFR (Non-Af Amer) POC Glucose (mg/dL) 169 H Random Glucose Calcium Phosphorus Magnesium Total Bilirubin AST ALT Alkaline Phosphatase Troponin I NT-Pro-B Natriuret Pep Total Protein Albumin Globulin Albumin/Globulin Ratio Venous Blood Potassium Influenza Typ A,B (EIA) Negative for flu a/b 01/31/19 01/31/19 01/31/19 18:00 18:00 18:00 WBC RBC Hgb Hct MCV MCH MCHC RDW Plt Count MPV Neut % (Auto) Lymph % (Auto) Levy % (Auto) Eos % (Auto) Baso % (Auto) Neut # (Auto) Lymph # (Auto) Levy # (Auto) Eos # (Auto) Baso # (Auto) Neutrophils % (Manual) Lymphocytes % (Manual) Monocytes % (Manual) Basophils % (Manual) Platelet Estimate Anisocytosis (manual) PT 14.6 H INR 1.3 APTT 36.7 pO2 VBG pH VBG pCO2 VBG HCO3 VBG Total CO2 VBG O2 Sat (Calc) VBG Base Excess VBG Potassium Glucose Lactate FiO2 Sodium 136 Potassium 4.4 Chloride 104 Carbon Dioxide 22 Anion Gap 14 BUN 48 H Creatinine 4.6 H Est GFR ( Amer) 17 Est GFR (Non-Af Amer) 14 POC Glucose (mg/dL) Random Glucose 176 H Calcium 8.3 L Phosphorus 4.2 Magnesium 1.6 Total Bilirubin 0.4 AST 18 ALT 12 L D Alkaline Phosphatase 126 D Troponin I 0.0610 NT-Pro-B Natriuret Pep 30575 H Total Protein 7.2 Albumin 3.3 L Globulin 3.9 Albumin/Globulin Ratio 0.9 L Venous Blood Potassium Influenza Typ A,B (EIA) 01/31/19 01/31/19 02/01/19 18:08 21:39 04:25 WBC 6.2 RBC 3.85 L Hgb 9.7 L Hct 30.5 L MCV 79.2 L MCH 25.3 L MCHC 31.9 L RDW 18.4 H Plt Count 209 MPV 9.0 Neut % (Auto) 71.2 Lymph % (Auto) 9.9 L Levy % (Auto) 15.3 H Eos % (Auto) 2.8 Baso % (Auto) 0.8 Neut # (Auto) 4.4 Lymph # (Auto) 0.6 L Levy # (Auto) 0.9 H Eos # (Auto) 0.2 Baso # (Auto) 0.1 Neutrophils % (Manual) Lymphocytes % (Manual) Monocytes % (Manual) Basophils % (Manual) Platelet Estimate Anisocytosis (manual) PT INR APTT pO2 44 VBG pH 7.36 VBG pCO2 39 L VBG HCO3 22.0 VBG Total CO2 23.2 VBG O2 Sat (Calc) 86.3 H VBG Base Excess -3.1 L VBG Potassium 4.4 Glucose 178 H Lactate 0.8 FiO2 21.0 Sodium 135.0 Potassium Chloride 105.0 Carbon Dioxide Anion Gap BUN Creatinine Est GFR ( Amer) Est GFR (Non-Af Amer) POC Glucose (mg/dL) 211 H Random Glucose Calcium Phosphorus Magnesium Total Bilirubin AST ALT Alkaline Phosphatase Troponin I NT-Pro-B Natriuret Pep Total Protein Albumin Globulin Albumin/Globulin Ratio Venous Blood Potassium 4.4 Influenza Typ A,B (EIA) 02/01/19 02/01/19 04:25 05:13 WBC RBC Hgb Hct MCV MCH MCHC RDW Plt Count MPV Neut % (Auto) Lymph % (Auto) Levy % (Auto) Eos % (Auto) Baso % (Auto) Neut # (Auto) Lymph # (Auto) Levy # (Auto) Eos # (Auto) Baso # (Auto) Neutrophils % (Manual) Lymphocytes % (Manual) Monocytes % (Manual) Basophils % (Manual) Platelet Estimate Anisocytosis (manual) PT INR APTT pO2 VBG pH VBG pCO2 VBG HCO3 VBG Total CO2 VBG O2 Sat (Calc) VBG Base Excess VBG Potassium Glucose Lactate FiO2 Sodium 136 Potassium 4.1 Chloride 104 Carbon Dioxide 22 Anion Gap 14 BUN 51 H Creatinine 4.9 H Est GFR ( Amer) 15 Est GFR (Non-Af Amer) 13 POC Glucose (mg/dL) 195 H Random Glucose 184 H Calcium 8.0 L Phosphorus Magnesium Total Bilirubin 0.3 AST 13 L D ALT 10 L Alkaline Phosphatase 103 Troponin I NT-Pro-B Natriuret Pep Total Protein 6.4 Albumin 3.0 L Globulin 3.4 Albumin/Globulin Ratio 0.9 L Venous Blood Potassium Influenza Typ A,B (EIA) Assessment & Plan (1) Acute on chronic systolic congestive heart failure Assessment and Plan: Lasix IV 40mg BID Status: Acute (2) CKD (chronic kidney disease) stage 4, GFR 15-29 ml/min Status: Acute (3) HTN (hypertension) Status: Acute
--- NOTE | 2019-02-01 10:00 | CP.PCM.PN ---
<Radha Christianson - Last Filed: 02/01/19 10:00> Subjective - Date & Time of Evaluation Date of Evaluation: 02/01/19 Time of Evaluation: 10:00 - Subjective Subjective: 48 yo M with history of uncontrolled HTN and diabetes admitted for evaluation of worsening renal function, and markedly elevated PBNP to r/o CHF. Concerned for fluid overload. Patient is developmentally delayed. Reports that he is feeling much better today and no longer has headaches or malaise. States he has good appetite. Denies chest pain, dyspnea, dizziness, abdominal pain, nausea or vomiting. Objective - Vital Signs/Intake and Output Vital Signs (last 24 hours): Temp Pulse Resp BP Pulse Ox 97.7 F 67 20 186/99 H 99 02/01/19 08:43 02/01/19 09:00 02/01/19 08:43 02/01/19 08:43 02/01/19 08:43 - Medications Medications: Current Medications Acetaminophen (Tylenol 325mg Tab) 650 mg PO Q6 PRN PRN Reason: Fever >100.4 F Furosemide (Lasix) 40 mg IVP BID NORM Guaifenesin (Robitussin) 100 mg PO Q4 PRN PRN Reason: Cough Last Admin: 02/01/19 08:25 Dose: 100 mg Heparin Sodium (Porcine) (Heparin) 5,000 units SC Q12 [facility]; Protocol Last Admin: 02/01/19 08:28 Dose: 5,000 units Hydralazine HCl (Apresoline) 25 mg PO TID NORM Last Admin: 02/01/19 08:27 Dose: 25 mg Insulin Human Lispro (Humalog) 0 units SC ACCU-CHECK NORM; Protocol Last Admin: 02/01/19 08:26 Dose: 1 units Insulin Lispro Protam/Lispro Human (Humalog Mix 75/25) 25 units SC DAILY [facility] Last Admin: 02/01/19 08:27 Dose: 25 units - Labs Labs: 02/01/19 04:25 02/01/19 04:25 PT 14.6 Seconds (9.8-13.1) H 01/31/19 18:00 INR 1.3 01/31/19 18:00 APTT 36.7 Seconds (25.6-37.1) 01/31/19 18:00 - Constitutional Appears: Non-toxic, No Acute Distress - Eye Exam Eye Exam: Normal appearance - ENT Exam ENT Exam: Mucous Membranes Moist - Respiratory Exam Respiratory Exam: Clear to Ausculation Bilateral - Cardiovascular Exam Cardiovascular Exam: +S1, +S2 - GI/Abdominal Exam GI & Abdominal Exam: Soft, Normal Bowel Sounds. absent: Distended, Firm, Guarding, Tenderness, Rebound - Extremities Exam Extremities Exam: Full ROM, Normal Capillary Refill, Normal Inspection, Pedal Edema (+1 pedal edema). absent: Calf Tenderness, Tenderness - Neurological Exam Neurological Exam: Alert, Awake, Oriented x3 - Psychiatric Exam Psychiatric exam: Normal Affect, Normal Mood - Skin Skin Exam: Dry, Intact, Normal Color, Warm Assessment and Plan - Assessment and Plan (Free Text) Assessment: 48 yo M with history of uncontrolled HTN and diabetes admitted for evaluation of worsening renal function, and markedly elevated PBNP (secondary to acute on chronic Systolic heart failure). Plan: Viral syndrome. - flu like sx - afebrile now, wbc wnl - flu negative - CXR: negative for acute lung disease - tylenol prn for pain or headache - Robitussin CKD stage 4, worsening - Bun/Cr: 48/4.6, ( last Cr 4.2 on 12/27/18 at [facility], previous one on 10/2018 was 3.8) - Renal US 03/2018: unremarkable - Nephro consulted, recs appreciated - held lisinopril and lasix for now Acute on Chronic Systolic Congestive heart failure Chronic leg edema - PBNP: 15,800 - echo 07/14/15: LVEF 45%, LV mild systolic/diastolic function impairment - Stress test 03/2018: non diagnostic, poor exercise tolerance. - CXR: cardiomegaly - Cardio recs appreciated: Lasix 40mg BID - lasix held for now due to renal impairment - f/u labs and echo in am HTN - uncontrolled, no complaint with treatment - hold norvasc, lisinopril - start hydralazine TID - Cardio consulted IDDM, uncontrolled - Hold PO meds - continue Humolog - SS coverage - acuchecks DVT ppx - heparin BID <Ana Trevino - Last Filed: 02/03/19 12:30> Objective - Vital Signs/Intake and Output Vital Signs (last 24 hours): Temp Pulse Resp BP Pulse Ox 97.9 F 75 20 165/82 H 98 04/22/19 11:57 02/03/19 11:57 02/03/19 11:57 02/03/19 11:57 02/03/19 11:57 - Medications Medications: Current Medications Acetaminophen (Tylenol 325mg Tab) 650 mg PO Q6 PRN PRN Reason: Fever >100.4 F Last Admin: 02/01/19 21:30 Dose: 650 mg Amlodipine Besylate (Norvasc) 10 mg PO DAILY [facility] Last Admin: 02/03/19 09:24 Dose: 10 mg Atorvastatin Calcium (Lipitor) 20 mg PO HS [facility] Last Admin: 02/02/19 23:00 Dose: 20 mg Benzocaine/Menthol (Cepacol Sore Throat) 1 misha PO Q3 PRN PRN Reason: Sore Throat Last Admin: 02/03/19 06:47 Dose: 1 misha Ergocalciferol (Drisdol 50,000 Intl Units Cap) 1 cap PO Q7D [facility] Last Admin: 02/02/19 13:02 Dose: 1 cap Ferrous Gluconate (Fergon) 324 mg PO TID [facility] Last Admin: 02/03/19 09:23 Dose: 324 mg Furosemide (Lasix) 40 mg IVP DAILY [facility] Last Admin: 02/03/19 09:24 Dose: 40 mg Heparin Sodium (Porcine) (Heparin) 5,000 units SC Q12 [facility]; Protocol Last Admin: 02/03/19 09:23 Dose: 5,000 units Hydralazine HCl (Apresoline) 25 mg PO TID [facility] Last Admin: 02/03/19 09:22 Dose: 25 mg Hydralazine HCl (Apresoline) 25 mg PO Q4 PRN PRN Reason: Other BP >170/110 Last Admin: 02/01/19 21:28 Dose: 25 mg Insulin Human Lispro (Humalog) 0 units SC ACCU-CHECK [facility]; Protocol Last Admin: 02/03/19 06:50 Dose: 1 units Insulin Lispro Protam/Lispro Human (Humalog Mix 75/25) 25 units SC DAILY [facility] Last Admin: 02/03/19 09:23 Dose: 25 units Metoprolol Succinate (Toprol Xl) 25 mg PO DAILY [facility] Last Admin: 02/03/19 09:25 Dose: 25 mg Sevelamer HCl (Renagel) 800 mg PO TID [facility] Vitamin B Complex/Vit C/Folic Acid (Nephro-Pati) 1 tab PO DAILY [facility] Last Admin: 02/03/19 09:24 Dose: 1 tab - Labs Labs: 02/03/19 05:05 02/03/19 05:05 PT 14.6 Seconds (9.8-13.1) H 01/31/19 18:00 INR 1.3 01/31/19 18:00 APTT 36.7 Seconds (25.6-37.1) 01/31/19 18:00 Attending/Attestation - Attestation I have personally seen and examined this patient.: Yes I have fully participated in the care of the patient.: Yes I have reviewed all pertinent clinical information, including history, physical exam and plan: Yes Notes (Text): agree with findings and plan as above worsening CKD, nephrology consult appreciated
[2019-02-01] MEDS: Benzocaine/Menthol (Cepacol) Lozenge PO PRN (10:51)
--- NOTE | 2019-02-01 13:00 | CP.PCM.CON ---
History of Present Illness - History of Present Illness History of Present Illness: Nephrology Consultation Note: Assessment: Stable Acute Kidney Injury (N17.9) versus progression of underlying CKD Acute on chronic CHF exacerbation HTN urgency Diabetic chronic Kidney Disease (E11.22) Hypertensive Chronic Kidney Disease (I12.9) Chronic Kidney Disease (N18.4) Stage 4 with ? mg proteinuria (R80.9) likely due to DM/HTN Anemia (D64.9), obesity Plan No acute need for renal replacement therapy at this time. pt was advised that he will need in near future. Hypertension control with meds as ordered. Maintain hemodynamics stable. Avoid hypotension. Patient not on ACEI/ARB due to recent TRISTAN. resume norvasc. hydralazine prn in additon. consider to add beta-art. CHF optimization Monitor Input/Output, daily weights and renal function with basic metabolic panel agree with lasix 40 mg IV bid will add iron and MVI Check urine analysis, spot protein/creatinine, albumin/creatinine ratio Check HIV/Hep B and Hep C serology Anemia work up with TSAT/Ferritin/Vitamin B12/folate Check for 25-OH vitamin D, iPTH Dose meds/antibiotics for reduced GFR. Avoid fleets enema/magnesium based laxatives. Avoid nephrotoxins/NSAIDs/ iodinated contrast (unless needed emergently) Glycemic control Further work up/management as per primary team Thanks for allowing me to participate in care of your patient. Will follow patient with you. Please call if any Qs. Dr Brijesh Timmons Office: [phone] Chief Complaint; I got sick Reason for consult: Acute Kidney Injury and CKD 4 HPI: Pt is a 48 M with hx of diabetes Mellitus ( years), hypertension (years) obesity mild CHF with LVEF 45%, CKD since 2014, baseline cr 3-3.7 in 2018 obesity presented with complaints of sickness. says he was having cough and SOB. reports leg swelling. still not aware much about his kidney disease extent Denies OTC/herbal meds or NSAIDs No recent iodinated contrast exposure. No obvious episodes of low BP. ROS: Cardiovascular: No chest pain. Pulmonary: improved shortness of breath Gastrointestinal: denies abdominal pain No nausea. No vomiting. Genitourinary: No pain while urinating. Denies blood in urine. All other negative except as mentioned in HPI Physical Examination: General Appearance: Comfortable, in no acute respiratory distress, co-operative . obese Vitals reviewed and noted as below Head; Atraumatic, normocephalic ENT: no ulcers no thrush. Tongue is midline. Oropharynx: no rash or ulcers. EYES: Pupils are equal, round and reactive to light accommodation. Eye muscles and extraocular movement intact. Sclera is anicteric. Neck; supple no lymphadenopathy, no thyromegaly or bruit Lungs: Normal respiratory rate/effort. Breath sounds bilateral reduced at bases with crackles Heart: Normal rate. s1s2 normal. No rub or gallop. Extremities: 2+ edema. No varicose veins Neurological: Patient is alert, awake and oriented to person, place and time. No focal deficit. Strength bilateral appropriate and equal Skin: Warm and dry. Normal turgor. No rash. Palpitation: Normal elasticity for age Abdomen: Abdomen is soft. Bowel sounds +. There is no abdominal tenderness, no guarding/rigidity no organomegaly Psych: limited insight and normal affect/mood MSK: no joint tenderness or swelling. Digits and nails normal, no deformity : kidney or bladder not palpable Labs/imaging reviewed. Past medical history, past surgical history, family history, social history, allergy reviewed and noted as below Family hx: no hx of CKD. Rest non-contributory LVEF 45% SPEP/PAULA neg renal sono unremarkable Past Patient History - Infectious Disease Hx of Infectious Diseases: None - Past Medical History & Family History Past Medical History?: Yes - Past Social History Alcohol: None Drugs: Denies - CARDIAC Hx Hypercholesterolemia: Yes Hx Hypertension: Yes - HEENT Hx HEENT Problems: Yes Hx Cataracts: Yes - RENAL Hx Chronic Kidney Disease: Yes - ENDOCRINE/METABOLIC Hx Endocrine Disorders: Yes Hx Diabetes Mellitus Type 1: Yes Hx Diabetes Mellitus Type 2: Yes - MUSCULOSKELETAL/RHEUMATOLOGICAL Hx Arthritis: Yes - PSYCHIATRIC Hx Psychophysiologic Disorder: No Hx Substance Use: No - SURGICAL HISTORY Hx Surgeries: No - ANESTHESIA Hx Anesthesia: No Meds Allergies/Adverse Reactions: Allergies Allergy/AdvReac Type Severity Reaction Status Date / Time No Known Allergies Allergy Verified 07/31/15 14:24 - Medications Medications: Current Medications Acetaminophen (Tylenol 325mg Tab) 650 mg PO Q6 PRN PRN Reason: Fever >100.4 F Benzocaine/Menthol (Cepacol Sore Throat) 1 misha PO Q3 PRN PRN Reason: Sore Throat Last Admin: 02/01/19 10:51 Dose: 1 misha Furosemide (Lasix) 40 mg IVP BID [facility] Last Admin: 02/01/19 10:47 Dose: 40 mg Guaifenesin (Robitussin) 100 mg PO Q4 PRN PRN Reason: Cough Last Admin: 02/01/19 08:25 Dose: 100 mg Heparin Sodium (Porcine) (Heparin) 5,000 units SC Q12 [facility]; Protocol Last Admin: 02/01/19 08:28 Dose: 5,000 units Hydralazine HCl (Apresoline) 25 mg PO TID [facility] Last Admin: 02/01/19 12:06 Dose: 25 mg Insulin Human Lispro (Humalog) 0 units SC ACCU-CHECK [facility]; Protocol Last Admin: 02/01/19 11:47 Dose: Not Given Insulin Lispro Protam/Lispro Human (Humalog Mix 75/25) 25 units SC DAILY [facility] Last Admin: 02/01/19 08:27 Dose: 25 units Results - Vital Signs Recent Vital Signs: Last Vital Signs Temp 97.7 F 02/01/19 08:43 Pulse 72 02/01/19 12:06 Resp 20 02/01/19 08:43 BP 169/78 H 02/01/19 12:06 Pulse Ox 99 02/01/19 08:43 - Labs Result Diagrams: 02/01/19 04:25 02/01/19 04:25 Labs: Laboratory Results - last 24 hr 01/31/19 01/31/19 01/31/19 17:12 17:16 18:00 WBC 9.3 RBC 4.27 L Hgb 10.6 L Hct 33.4 L MCV 78.3 L D MCH 24.9 L MCHC 31.8 L RDW 17.8 H Plt Count 256 MPV 8.8 Neut % (Auto) 86.2 H Lymph % (Auto) 4.0 L [place] % (Auto) 8.7 Eos % (Auto) 0.4 Baso % (Auto) 0.7 Neut # (Auto) 8.1 H Lymph # (Auto) 0.4 L [place] # (Auto) 0.8 Eos # (Auto) 0.0 Baso # (Auto) 0.1 Neutrophils % (Manual) 87 H Lymphocytes % (Manual) 5 L Monocytes % (Manual) 7 Basophils % (Manual) 1 Platelet Estimate Normal Anisocytosis (manual) Slight PT INR APTT pO2 VBG pH VBG pCO2 VBG HCO3 VBG Total CO2 VBG O2 Sat (Calc) VBG Base Excess VBG Potassium Glucose Lactate FiO2 Sodium Potassium Chloride Carbon Dioxide Anion Gap BUN Creatinine Est GFR ( Amer) Est GFR (Non-Af Amer) POC Glucose (mg/dL) 169 H Random Glucose Calcium Phosphorus Magnesium Total Bilirubin AST ALT Alkaline Phosphatase Troponin I NT-Pro-B Natriuret Pep Total Protein Albumin Globulin Albumin/Globulin Ratio Venous Blood Potassium Influenza Typ A,B (EIA) Negative for flu a/b 01/31/19 01/31/19 01/31/19 18:00 18:00 18:00 WBC RBC Hgb Hct MCV MCH MCHC RDW Plt Count MPV Neut % (Auto) Lymph % (Auto) [place] % (Auto) Eos % (Auto) Baso % (Auto) Neut # (Auto) Lymph # (Auto) [place] # (Auto) Eos # (Auto) Baso # (Auto) Neutrophils % (Manual) Lymphocytes % (Manual) Monocytes % (Manual) Basophils % (Manual) Platelet Estimate Anisocytosis (manual) PT 14.6 H INR 1.3 APTT 36.7 pO2 VBG pH VBG pCO2 VBG HCO3 VBG Total CO2 VBG O2 Sat (Calc) VBG Base Excess VBG Potassium Glucose Lactate FiO2 Sodium 136 Potassium 4.4 Chloride 104 Carbon Dioxide 22 Anion Gap 14 BUN 48 H Creatinine 4.6 H Est GFR ( Amer) 17 Est GFR (Non-Af Amer) 14 POC Glucose (mg/dL) Random Glucose 176 H Calcium 8.3 L Phosphorus 4.2 Magnesium 1.6 Total Bilirubin 0.4 AST 18 ALT 12 L D Alkaline Phosphatase 126 D Troponin I 0.0610 NT-Pro-B Natriuret Pep 42750 H Total Protein 7.2 Albumin 3.3 L Globulin 3.9 Albumin/Globulin Ratio 0.9 L Venous Blood Potassium Influenza Typ A,B (EIA) 01/31/19 01/31/19 02/01/19 18:08 21:39 04:25 WBC 6.2 RBC 3.85 L Hgb 9.7 L Hct 30.5 L MCV 79.2 L MCH 25.3 L MCHC 31.9 L RDW 18.4 H Plt Count 209 MPV 9.0 Neut % (Auto) 71.2 Lymph % (Auto) 9.9 L [place] % (Auto) 15.3 H Eos % (Auto) 2.8 Baso % (Auto) 0.8 Neut # (Auto) 4.4 Lymph # (Auto) 0.6 L [place] # (Auto) 0.9 H Eos # (Auto) 0.2 Baso # (Auto) 0.1 Neutrophils % (Manual) Lymphocytes % (Manual) Monocytes % (Manual) Basophils % (Manual) Platelet Estimate Anisocytosis (manual) PT INR APTT pO2 44 VBG pH 7.36 VBG pCO2 39 L VBG HCO3 22.0 VBG Total CO2 23.2 VBG O2 Sat (Calc) 86.3 H VBG Base Excess -3.1 L VBG Potassium 4.4 Glucose 178 H Lactate 0.8 FiO2 21.0 Sodium 135.0 Potassium Chloride 105.0 Carbon Dioxide Anion Gap BUN Creatinine Est GFR ( Amer) Est GFR (Non-Af Amer) POC Glucose (mg/dL) 211 H Random Glucose Calcium Phosphorus Magnesium Total Bilirubin AST ALT Alkaline Phosphatase Troponin I NT-Pro-B Natriuret Pep Total Protein Albumin Globulin Albumin/Globulin Ratio Venous Blood Potassium 4.4 Influenza Typ A,B (EIA) 02/01/19 02/01/19 02/01/19 04:25 05:13 11:20 WBC RBC Hgb Hct MCV MCH MCHC RDW Plt Count MPV Neut % (Auto) Lymph % (Auto) [place] % (Auto) Eos % (Auto) Baso % (Auto) Neut # (Auto) Lymph # (Auto) [place] # (Auto) Eos # (Auto) Baso # (Auto) Neutrophils % (Manual) Lymphocytes % (Manual) Monocytes % (Manual) Basophils % (Manual) Platelet Estimate Anisocytosis (manual) PT INR APTT pO2 VBG pH VBG pCO2 VBG HCO3 VBG Total CO2 VBG O2 Sat (Calc) VBG Base Excess VBG Potassium Glucose Lactate FiO2 Sodium 136 Potassium 4.1 Chloride 104 Carbon Dioxide 22 Anion Gap 14 BUN 51 H Creatinine 4.9 H Est GFR ( Amer) 15 Est GFR (Non-Af Amer) 13 POC Glucose (mg/dL) 195 H 138 H Random Glucose 184 H Calcium 8.0 L Phosphorus Magnesium Total Bilirubin 0.3 AST 13 L D ALT 10 L Alkaline Phosphatase 103 Troponin I NT-Pro-B Natriuret Pep Total Protein 6.4 Albumin 3.0 L Globulin 3.4 Albumin/Globulin Ratio 0.9 L Venous Blood Potassium Influenza Typ A,B (EIA)
[2019-02-01 14:15] VITALS: BMI 38.2
[2019-02-01 14:41] LABS: IRON 19 ug/dL (49-181)
[2019-02-01 14:50] LABS: % IRON SATURATION 8 % (20-55); TOTAL IRON BINDING CAPACITY 236 ug/dL (250-450)
[2019-02-01] MEDS: Multivitamin Vitamin B Complex (Nephro-Vite) Tab PO SCH (14:57)
[2019-02-01 15:03] LABS: FERRITIN 99.7 ng/Ml (17.9-464)
[2019-02-01 19:37] LABS: HEPATITIS B SURFACE AG Negative (NEGATIVE)
[2019-02-01 19:42] LABS: HEPATITIS B CORE AB NEGATIVE (NEGATIVE)
[2019-02-01 19:54] LABS: HEPATITIS C ANTIBODY NEGATIVE (NEGATIVE)
[2019-02-01 20:11] LABS: FOLATE 8.9 ng/mL
[2019-02-01 21:16] LABS: URINE BILIRUBIN NEGATIVE (NEGATIVE); URINE BLOOD SMALL (NEGATIVE); URINE CLARITY CLEAR (Clear); URINE COLOR STRAW (YELLOW); URINE GLUCOSE (UA) 50 mg/dL (NEGATIVE); URINE HYALINE CAST 0-2 /hpf (0-2); URINE LEUKOCYTE ESTERASE NEG Leu/uL (Negative); URINE PROTEIN >=500 mg/dL (NEGATIVE); URINE UROBILINOGEN 0.2-1.0 mg/dL (0.2-1.0)
--- NOTE | 2019-02-01 22:16 | CARD ---
APPROVED REPORT Date of service: 02/01/2019 EXAM: Two-dimensional and M-mode echocardiogram with Doppler and color Doppler. Other Information Quality : GoodRhythm : NSR 2D DIMENSIONS IVSd1.74 (0.7-1.1cm)LVDd5.54 (3.9-5.9cm) PWd1.29 (0.7-1.1cm)IVSs2.36 (0.8-1.2cm) LA Ugdasr31 (18-58mL)LVDs3.66 (2.5-4.0cm) FS (%) 34.0 %PWs1.96 (0.8-1.2cm) SV74.11 mlLVEF (%)54.2 (>50%) CO5.89 L/min M-Mode DIMENSIONS Left Atrium (MM)4.30 (2.5-4.0cm)IVSd1.93 (0.7-1.1cm) Aortic Root2.97 (2.2-3.7cm) Aortic Valve AoV Peak Aqfnkmdd247.7cm/sAoV VTI31.5cmAO Peak GR.9mmHg LVOT Peak Wgdotjww92.5cm/sLVOT VTI16.07cmAO Mean GR.6mmHg Mitral Valve MV E Fdffhyvf24.8cm/sMV E Peak Gr.36mmHgMV DECEL [id number] MV A Mzmnbplr44.5cm/sMV APD31knP/A ratio1.5 MVA (PHT)4.47cm2 TDI Lateral E' Peak V7.41cm/sMedial E' Peak V5.30cm/sE/Lateral E'12.0 E/Medial E'16.8 Pulmonary Valve PV Peak Nrjrwoea73.3cm/s LEFT VENTRICLE The left ventricle is normal size. There is mild to moderate concentric left ventricular hypertrophy. The left ventricular systolic function is normal. The estimated ejection fraction is 55-60% No regional wall motion abnormalities noted.. Transmitral Doppler flow pattern is Grade II-pseudonormal filling dynamics. No left ventricle thrombus noted on this study. There is no ventricular septal defect visualized. There is no left ventricular aneurysm. There is no mass noted in the left ventricle. RIGHT VENTRICLE The right ventricle is normal size. There is normal right ventricular wall thickness. The right ventricular systolic function is normal. ATRIA The left atrium is mildly dilated. The right atrium size is normal. The interatrial septum is intact with no evidence for an atrial septal defect. AORTIC VALVE The aortic valve is normal in structure. No aortic regurgitation is present. There is no aortic valvular stenosis. There is no aortic valvular vegetation. MITRAL VALVE The mitral valve is normal in structure. There is no evidence of mitral valve prolapse. There is no mitral valve stenosis. There is mild mitral valve regurgitation noted. TRICUSPID VALVE The tricuspid valve is normal in structure. There is no significant tricuspid valve regurgitation noted. There is no tricuspid valve prolapse or vegetation. There is no tricuspid valve stenosis. PULMONIC VALVE The pulmonary valve is normal in structure. There is trivial pulmonic valvular regurgitation. There is no pulmonic valvular stenosis. GREAT VESSELS The aortic root is normal in size. The ascending aorta is normal in size. The pulmonary artery is normal. The IVC is dilated in size and collapses >50% with inspiration. PERICARDIAL EFFUSION There is no pericardial effusion. There is no pleural effusion. <Conclusion> There is mild to moderate concentric left ventricular hypertrophy. The estimated ejection fraction is 55-60% Transmitral Doppler flow pattern is Grade II-pseudonormal filling dynamics. The left atrium is mildly dilated. There is mild mitral valve regurgitation noted. There is no significant tricuspid valve regurgitation noted. The IVC is dilated in size and collapses >50% with inspiration. Global LV strain is about -15.
[2019-02-01] MEDS: Oxymetazoline 0.05% SPRAY NAS PRN (23:48)
[2019-02-02] MEDS: Insulin Lispro (humaLOG) 100 Units/ml Inj SC SCH ×4 (06:01→22:26)
[2019-02-02 06:44] LABS: BASO % 0.5 % (0.0-2.0); EOS # 0.2 K/uL (0.0-0.7); EOS % 1.7 % (0.0-4.0); HEMOGLOBIN 9.9 g/dL (12.0-18.0); LYMPH # 0.9 K/uL (1.0-4.3); LYMPH % 10.2 % (20.0-40.0); MEAN CELL VOLUME 78.4 fl (80.0-94.0); MEAN CORPUSCULAR HEMOGLOBIN 25.3 pg (27.0-31.0); MEAN CORPUSCULAR HGB CONC 32.2 g/dL (33.0-37.0); MEAN PLATELET VOLUME 9.3 fl (7.2-11.7); MONO # 1.3 K/uL (0.0-0.8); MONO % 14.3 % (0.0-10.0); NEUT # 6.8 K/uL (1.8-7.0); NEUT % 73.3 % (50.0-75.0); RBC 3.9 Mil/uL (4.40-5.90); RED CELL DISTRIBUTION WIDTH 18.1 % (11.5-14.5); WHITE BLOOD COUNT 9.3 K/uL (4.8-10.8)
[2019-02-02 06:54] LABS: CALCIUM 7.8 mg/dL (8.4-10.2)
--- NOTE | 2019-02-02 08:09 | CP.PCM.PN ---
<Neema Gerber - Last Filed: 02/02/19 14:43> Subjective - Date & Time of Evaluation Date of Evaluation: 02/02/19 Time of Evaluation: 08:00 - Subjective Subjective: Pt is a 48 yo M with history of uncontrolled HTN and diabetes admitted for evaluation of worsening renal function, and markedly elevated PBNP to r/o CHF. Patient is developmentally delayed. Reports that he is feeling much better today, has mild sore throat, dizziness has resolved, still has leg swelling. Tolerating oral intake. Denies F/C, SOB, chest pain, N/V/D/C. Objective - Vital Signs/Intake and Output Vital Signs (last 24 hours): Temp Pulse Resp BP Pulse Ox 97.6 F 84 18 170/101 H 94 L 02/02/19 05:00 02/02/19 05:00 02/02/19 05:00 02/02/19 05:00 02/02/19 05:00 - Medications Medications: Current Medications Acetaminophen (Tylenol 325mg Tab) 650 mg PO Q6 PRN PRN Reason: Fever >100.4 F Last Admin: 02/01/19 21:30 Dose: 650 mg Amlodipine Besylate (Norvasc) 10 mg PO DAILY [facility] Last Admin: 02/01/19 14:57 Dose: 10 mg Benzocaine/Menthol (Cepacol Sore Throat) 1 misha PO Q3 PRN PRN Reason: Sore Throat Last Admin: 02/01/19 10:51 Dose: 1 misha Ferrous Gluconate (Fergon) 324 mg PO TID [facility] Last Admin: 02/01/19 16:27 Dose: Not Given Furosemide (Lasix) 40 mg IVP BID [facility] Last Admin: 02/01/19 16:32 Dose: 40 mg Guaifenesin (Robitussin) 100 mg PO Q4 PRN PRN Reason: Cough Last Admin: 02/01/19 21:21 Dose: 100 mg Heparin Sodium (Porcine) (Heparin) 5,000 units SC Q12 [facility]; Protocol Last Admin: 02/01/19 21:19 Dose: 5,000 units Hydralazine HCl (Apresoline) 25 mg PO TID [facility] Last Admin: 02/01/19 16:26 Dose: 25 mg Hydralazine HCl (Apresoline) 25 mg PO Q4 PRN PRN Reason: Other BP >170/110 Last Admin: 02/01/19 21:28 Dose: 25 mg Insulin Human Lispro (Humalog) 0 units SC ACCU-CHECK [facility]; Protocol Last Admin: 02/02/19 06:01 Dose: Not Given Insulin Lispro Protam/Lispro Human (Humalog Mix 75/25) 25 units SC DAILY [facility] Last Admin: 02/01/19 08:27 Dose: 25 units Oxymetazoline HCl (Afrin 0.05%) 1 spr KEVIN Q12 PRN PRN Reason: Nasal congestion Last Admin: 02/01/19 23:48 Dose: 1 spr Vitamin B Complex/Vit C/Folic Acid (Nephro-Pati) 1 tab PO DAILY [facility] Last Admin: 02/01/19 14:57 Dose: 1 tab - Labs Labs: 02/02/19 04:30 02/02/19 04:30 PT 14.6 Seconds (9.8-13.1) H 01/31/19 18:00 INR 1.3 01/31/19 18:00 APTT 36.7 Seconds (25.6-37.1) 01/31/19 18:00 - Constitutional Appears: Non-toxic, No Acute Distress - Head Exam Head Exam: ATRAUMATIC, NORMAL INSPECTION, NORMOCEPHALIC - Eye Exam Eye Exam: EOMI - ENT Exam ENT Exam: Mucous Membranes Moist, Normal Oropharynx Additional comments: No tonsilar exudates, no erythema - Respiratory Exam Respiratory Exam: Clear to Ausculation Bilateral. absent: Rales, Rhonchi, Wheezes - Cardiovascular Exam Cardiovascular Exam: RRR, +S1, +S2 - GI/Abdominal Exam GI & Abdominal Exam: Soft, Normal Bowel Sounds. absent: Tenderness - Extremities Exam Extremities Exam: Pedal Edema (1+ ) - Neurological Exam Neurological Exam: Alert, Awake - Skin Skin Exam: Dry, Intact, Normal Color Assessment and Plan - Assessment and Plan (Free Text) Assessment: 48 yo M with history of uncontrolled HTN and diabetes admitted for evaluation of worsening renal function, and markedly elevated PBNP (secondary to acute on chronic Systolic heart failure). Plan: Viral syndrome. - flu like sx improving - afebrile, wbc wnl - flu negative - CXR: negative for acute lung disease - tylenol prn for pain or headache - Robitussin - blood cx no growth @24hrs, HIV pending - F/u labs in AM TRISTAN and CKD stage 4, worsening - Bun/Cr: 58/5.0, GFR 12 (last Cr 4.2 on 12/27/18 at [facility], previous one on 10/2018 was 3.8) - Renal US 03/2018: unremarkable - Nephro consulted, recs appreciated-No acute need for renal replacement therapy at this time, will need in future - Restarted lasix 40mg IV - F/u BMP, microalbumin, iPTH in AM Acute on Chronic Systolic Congestive heart failure Chronic leg edema - PBNP: 15,800 - Echo 02/01/19: LVEF 55-60%, mild to mod LVH, LA mild dilated - Stress test 03/2018: non diagnostic, poor exercise tolerance. - CXR: cardiomegaly, monitor I/O, daily weights - Cardio recs appreciated - Restarted lasix 40mg IV - f/u labs in AM Anemia acute - Hg/hct 9.9/30.6 - Fe panel low, ferritin normal, 25OH low, B12 and folate WNL - Started Ferrous Gluconate 324mg TID, multivitamin, weekly Vit D - F/u CBC in AM HTN - uncontrolled - norvasc 10mg QD - Hydralazine TID, and PRN - lisinopril on hold due to recent TRISTAN - Cardio consulted reccs appreciated IDDM, uncontrolled - Hold PO meds, POC 118 - continue Humalog 25units SC daily - SS coverage - accuchecks - Started Atorvastatin 20mg HS Diet - Consitent carbohydrate DVT ppx - heparin BID <Susan Doherty - Last Filed: 02/02/19 15:43> Objective - Vital Signs/Intake and Output Vital Signs (last 24 hours): Temp Pulse Resp BP Pulse Ox 97.6 F 98 H 20 123/70 97 02/02/19 13:00 02/02/19 13:00 02/02/19 13:00 02/02/19 13:00 02/02/19 13:00 - Medications Medications: Current Medications Acetaminophen (Tylenol 325mg Tab) 650 mg PO Q6 PRN PRN Reason: Fever >100.4 F Last Admin: 02/01/19 21:30 Dose: 650 mg Amlodipine Besylate (Norvasc) 10 mg PO DAILY [facility] Last Admin: 02/02/19 09:05 Dose: 10 mg Atorvastatin Calcium (Lipitor) 20 mg PO HS [facility] Benzocaine/Menthol (Cepacol Sore Throat) 1 misha PO Q3 PRN PRN Reason: Sore Throat Last Admin: 02/01/19 10:51 Dose: 1 misha Ergocalciferol (Drisdol 50,000 Intl Units Cap) 1 cap PO Q7D [facility] Last Admin: 02/02/19 13:02 Dose: 1 cap Ferrous Gluconate (Fergon) 324 mg PO TID [facility] Last Admin: 02/02/19 13:03 Dose: 324 mg Furosemide (Lasix) 40 mg IVP DAILY [facility] Last Admin: 02/02/19 09:02 Dose: 40 mg Guaifenesin (Robitussin) 100 mg PO Q4 PRN PRN Reason: Cough Last Admin: 02/01/19 21:21 Dose: 100 mg Heparin Sodium (Porcine) (Heparin) 5,000 units SC Q12 [facility]; Protocol Last Admin: 02/02/19 09:03 Dose: 5,000 units Hydralazine HCl (Apresoline) 25 mg PO TID [facility] Last Admin: 02/02/19 09:03 Dose: 25 mg Hydralazine HCl (Apresoline) 25 mg PO Q4 PRN PRN Reason: Other BP >170/110 Last Admin: 02/01/19 21:28 Dose: 25 mg Insulin Human Lispro (Humalog) 0 units SC ACCU-CHECK [facility]; Protocol Last Admin: 02/02/19 13:02 Dose: 1 units Insulin Lispro Protam/Lispro Human (Humalog Mix 75/25) 25 units SC DAILY [facility] Last Admin: 02/02/19 09:04 Dose: 25 units Metoprolol Succinate (Toprol Xl) 25 mg PO DAILY [facility] Oxymetazoline HCl (Afrin 0.05%) 1 spr KEVIN Q12 PRN PRN Reason: Nasal congestion Last Admin: 02/01/19 23:48 Dose: 1 spr Vitamin B Complex/Vit C/Folic Acid (Nephro-Pati) 1 tab PO DAILY [facility] Last Admin: 02/02/19 09:02 Dose: 1 tab - Labs Labs: 02/02/19 04:30 02/02/19 04:30 PT 14.6 Seconds (9.8-13.1) H 01/31/19 18:00 INR 1.3 01/31/19 18:00 APTT 36.7 Seconds (25.6-37.1) 01/31/19 18:00 Attending/Attestation - Attestation I have personally seen and examined this patient.: Yes I have fully participated in the care of the patient.: Yes I have reviewed all pertinent clinical information, including history, physical exam and plan: Yes Notes (Text): Acute on Chronic CHF , systolic dysfunction, EF 55% TRISTAN on CKD Stage IV URI likely viral DM Type II HTN - cont IV Lasix, decrease to 40 mg once daily, cont Hydralazine, add Norvasc 10 mg daily and Toprol XL 25 mg daily -cont 75/25 Insulin, accucheck with coverage - Nephrology following pt - SOB improving, still with pedal edema - plan to d/c in am if Crea does not worsen
[2019-02-02] MEDS: Multivitamin Vitamin B Complex (Nephro-Vite) Tab PO SCH (09:02)
[2019-02-02] MEDS: Insulin Lispro Mix 75/25 100 units/ml (HumaLog) 10ml SC SCH (09:04)
--- NOTE | 2019-02-02 11:59 | CP.PCM.PN ---
Subjective - Date & Time of Evaluation Date of Evaluation: 02/02/19 Time of Evaluation: 11:57 - Subjective Subjective: Nephrology Consultation Note: Assessment: Stable Acute Kidney Injury (N17.9) versus progression of underlying CKD Acute on chronic CHF exacerbation HTN urgency Diabetic chronic Kidney Disease (E11.22) Hypertensive Chronic Kidney Disease (I12.9) Chronic Kidney Disease (N18.4) Stage 4 with ? mg proteinuria (R80.9) likely due to DM/HTN Anemia (D64.9), obesity Plan No acute need for renal replacement therapy at this time. pt was advised that he will need in near future. Hypertension control with meds as ordered. Maintain hemodynamics stable. Avoid hypotension. Patient not on ACEI/ARB due to recent TRISTAN. resume norvasc. hydralazine prn in additon. consider to add beta-art. CHF optimization Monitor Input/Output, daily weights and renal function with basic metabolic panel continue with lasix will add iron and MVI, weekly Vit D added statins avoid oxymetazoline/decongestants as can cause worsening of HTN Check urine analysis, spot protein/creatinine, albumin/creatinine ratio Check HIV/Hep B and Hep C serology Anemia work up with TSAT/Ferritin/Vitamin B12/folate Check for 25-OH vitamin D, iPTH Dose meds/antibiotics for reduced GFR. Avoid fleets enema/magnesium based laxatives. Avoid nephrotoxins/NSAIDs/ iodinated contrast (unless needed emergently) Glycemic control Further work up/management as per primary team Thanks for allowing me to participate in care of your patient. Will follow patient with you. Please call if any Qs. Dr Brijesh Timmons Office: [phone] Chief Complaint; I got sick Reason for consult: Acute Kidney Injury and CKD 4 HPI: Pt is a 48 M with hx of diabetes Mellitus ( years), hypertension (years) obesity mild CHF with LVEF 45%, CKD since 2014, baseline cr 3-3.7 in 2018 obesity presented with complaints of sickness. says he was having cough and SOB. reports leg swelling. still not aware much about his kidney disease extent Denies OTC/herbal meds or NSAIDs No recent iodinated contrast exposure. No obvious episodes of low BP. ROS: has cough and sore throat Cardiovascular: No chest pain. Pulmonary: improved shortness of breath Gastrointestinal: denies abdominal pain No nausea. No vomiting. Genitourinary: No pain while urinating. Denies blood in urine. All other negative except as mentioned in HPI Physical Examination: General Appearance: Comfortable, in no acute respiratory distress, co-operative . obese Vitals reviewed and noted as below Head; Atraumatic, normocephalic ENT: no ulcers no thrush. Tongue is midline. Oropharynx: no rash or ulcers. EYES: Pupils are equal, round and reactive to light accommodation. Eye muscles and extraocular movement intact. Sclera is anicteric. Neck; supple no lymphadenopathy, no thyromegaly or bruit Lungs: Normal respiratory rate/effort. Breath sounds bilateral reduced at bases but clearer Heart: Normal rate. s1s2 normal. No rub or gallop. Extremities: 2+ edema. No varicose veins Neurological: Patient is alert, awake and oriented to person, place and time. No focal deficit. Strength bilateral appropriate and equal Skin: Warm and dry. Normal turgor. No rash. Palpitation: Normal elasticity for age Abdomen: Abdomen is soft. Bowel sounds +. There is no abdominal tenderness, no guarding/rigidity no organomegaly Psych: limited insight and normal affect/mood MSK: no joint tenderness or swelling. Digits and nails normal, no deformity : kidney or bladder not palpable Labs/imaging reviewed. Past medical history, past surgical history, family history, social history, allergy reviewed and noted as below Family hx: no hx of CKD. Rest non-contributory LVEF 45% SPEP/PAULA neg renal sono unremarkable Objective - Vital Signs/Intake and Output Vital Signs (last 24 hours): Temp Pulse Resp BP Pulse Ox 97.6 F 85 20 142/72 97 02/02/19 09:00 02/02/19 09:05 02/02/19 09:00 02/02/19 09:05 02/02/19 09:00 - Medications Medications: Current Medications Acetaminophen (Tylenol 325mg Tab) 650 mg PO Q6 PRN PRN Reason: Fever >100.4 F Last Admin: 02/01/19 21:30 Dose: 650 mg Amlodipine Besylate (Norvasc) 10 mg PO DAILY [facility] Last Admin: 02/02/19 09:05 Dose: 10 mg Atorvastatin Calcium (Lipitor) 20 mg PO HS [facility] Benzocaine/Menthol (Cepacol Sore Throat) 1 misha PO Q3 PRN PRN Reason: Sore Throat Last Admin: 02/01/19 10:51 Dose: 1 misha Ergocalciferol (Drisdol 50,000 Intl Units Cap) 1 cap PO Q7D [facility] Ferrous Gluconate (Fergon) 324 mg PO TID [facility] Last Admin: 02/02/19 09:02 Dose: 324 mg Furosemide (Lasix) 40 mg IVP DAILY [facility] Last Admin: 02/02/19 09:02 Dose: 40 mg Guaifenesin (Robitussin) 100 mg PO Q4 PRN PRN Reason: Cough Last Admin: 02/01/19 21:21 Dose: 100 mg Heparin Sodium (Porcine) (Heparin) 5,000 units SC Q12 [facility]; Protocol Last Admin: 02/02/19 09:03 Dose: 5,000 units Hydralazine HCl (Apresoline) 25 mg PO TID [facility] Last Admin: 02/02/19 09:03 Dose: 25 mg Hydralazine HCl (Apresoline) 25 mg PO Q4 PRN PRN Reason: Other BP >170/110 Last Admin: 02/01/19 21:28 Dose: 25 mg Insulin Human Lispro (Humalog) 0 units SC ACCU-CHECK [facility]; Protocol Last Admin: 02/02/19 06:01 Dose: Not Given Insulin Lispro Protam/Lispro Human (Humalog Mix 75/25) 25 units SC DAILY [facility] Last Admin: 02/02/19 09:04 Dose: 25 units Oxymetazoline HCl (Afrin 0.05%) 1 spr KEVIN Q12 PRN PRN Reason: Nasal congestion Last Admin: 02/01/19 23:48 Dose: 1 spr Vitamin B Complex/Vit C/Folic Acid (Nephro-Pati) 1 tab PO DAILY [facility] Last Admin: 02/02/19 09:02 Dose: 1 tab - Labs Labs: 02/02/19 04:30 02/02/19 04:30 PT 14.6 Seconds (9.8-13.1) H 01/31/19 18:00 INR 1.3 01/31/19 18:00 APTT 36.7 Seconds (25.6-37.1) 01/31/19 18:00
[2019-02-02] MEDS ORDERED: Ergocalciferol 50,000 Intl Units Cap PO SCH (12:00)
[2019-02-02] MEDS: Metoprolol Succinate 25 mg XL Tab PO SCH (15:33)
[2019-02-02] MEDS: Benzocaine/Menthol (Cepacol) Lozenge PO PRN (17:28)
[2019-02-02] MEDS: Oxymetazoline 0.05% SPRAY NAS PRN (21:52)
[2019-02-02] MEDS: guaiFENesin 100 mg/5 ml Syrup UD PO PRN (22:28)
[2019-02-03 05:31] LABS: BASO % 0.4 % (0.0-2.0); EOS # 0.3 K/uL (0.0-0.7); EOS % 3.3 % (0.0-4.0); HEMOGLOBIN 9.3 g/dL (12.0-18.0); LYMPH # 0.8 K/uL (1.0-4.3); LYMPH % 7.3 % (20.0-40.0); MEAN CELL VOLUME 78.1 fl (80.0-94.0); MEAN CORPUSCULAR HEMOGLOBIN 25.3 pg (27.0-31.0); MEAN CORPUSCULAR HGB CONC 32.4 g/dL (33.0-37.0); MONO # 1.2 K/uL (0.0-0.8); MONO % 11.8 % (0.0-10.0); NEUT # 8.1 K/uL (1.8-7.0); NEUT % 77.2 % (50.0-75.0); RBC 3.67 Mil/uL (4.40-5.90); RED CELL DISTRIBUTION WIDTH 17.8 % (11.5-14.5); WHITE BLOOD COUNT 10.5 K/uL (4.8-10.8)
[2019-02-03 05:47] LABS: CALCIUM 7.6 mg/dL (8.4-10.2)
[2019-02-03] MEDS: Benzocaine/Menthol (Cepacol) Lozenge PO PRN ×3 (06:47→21:45)
[2019-02-03] MEDS: Insulin Lispro (humaLOG) 100 Units/ml Inj SC SCH ×4 (06:50→23:00)
--- NOTE | 2019-02-03 08:17 | CP.PCM.PN ---
<Radha Christianson - Last Filed: 02/03/19 10:50> Subjective - Date & Time of Evaluation Date of Evaluation: 02/03/19 Time of Evaluation: 08:30 - Subjective Subjective: Patient seen and examined at bedside. Reports feeling well today with good Appetite. No acute overnight events. Denies chest pain, shortness of breath, nausea, vomiting, coughing, and abdominal pain. Denies any complaints. Objective - Vital Signs/Intake and Output Vital Signs (last 24 hours): Temp Pulse Resp BP Pulse Ox 97.9 F 82 20 176/80 H 97 02/03/19 08:16 02/03/19 08:16 02/03/19 08:16 02/03/19 08:16 02/03/19 08:16 - Medications Medications: Current Medications Acetaminophen (Tylenol 325mg Tab) 650 mg PO Q6 PRN PRN Reason: Fever >100.4 F Last Admin: 02/01/19 21:30 Dose: 650 mg Amlodipine Besylate (Norvasc) 10 mg PO DAILY [facility] Last Admin: 02/02/19 09:05 Dose: 10 mg Atorvastatin Calcium (Lipitor) 20 mg PO HS [facility] Last Admin: 02/02/19 23:00 Dose: 20 mg Benzocaine/Menthol (Cepacol Sore Throat) 1 misha PO Q3 PRN PRN Reason: Sore Throat Last Admin: 02/03/19 06:47 Dose: 1 misha Ergocalciferol (Drisdol 50,000 Intl Units Cap) 1 cap PO Q7D [facility] Last Admin: 02/02/19 13:02 Dose: 1 cap Ferrous Gluconate (Fergon) 324 mg PO TID [facility] Last Admin: 02/02/19 17:26 Dose: 324 mg Furosemide (Lasix) 40 mg IVP DAILY [facility] Last Admin: 02/02/19 09:02 Dose: 40 mg Heparin Sodium (Porcine) (Heparin) 5,000 units SC Q12 [facility]; Protocol Last Admin: 02/02/19 21:54 Dose: 5,000 units Hydralazine HCl (Apresoline) 25 mg PO TID [facility] Last Admin: 02/02/19 17:25 Dose: 25 mg Hydralazine HCl (Apresoline) 25 mg PO Q4 PRN PRN Reason: Other BP >170/110 Last Admin: 02/01/19 21:28 Dose: 25 mg Insulin Human Lispro (Humalog) 0 units SC ACCU-CHECK [facility]; Protocol Last Admin: 02/03/19 06:50 Dose: 1 units Insulin Lispro Protam/Lispro Human (Humalog Mix 75/25) 25 units SC DAILY [facility] Last Admin: 02/02/19 09:04 Dose: 25 units Metoprolol Succinate (Toprol Xl) 25 mg PO DAILY [facility] Last Admin: 02/02/19 15:33 Dose: 25 mg Vitamin B Complex/Vit C/Folic Acid (Nephro-Pati) 1 tab PO DAILY [facility] Last Admin: 02/02/19 09:02 Dose: 1 tab - Labs Labs: 02/03/19 05:05 02/03/19 05:05 PT 14.6 Seconds (9.8-13.1) H 01/31/19 18:00 INR 1.3 01/31/19 18:00 APTT 36.7 Seconds (25.6-37.1) 01/31/19 18:00 - Constitutional Appears: Non-toxic, No Acute Distress - Eye Exam Eye Exam: Normal appearance - ENT Exam ENT Exam: Mucous Membranes Moist - Respiratory Exam Respiratory Exam: Clear to Ausculation Bilateral, NORMAL BREATHING PATTERN. absent: Rales, Rhonchi, Wheezes - Cardiovascular Exam Cardiovascular Exam: REGULAR RHYTHM, +S1, +S2 - GI/Abdominal Exam GI & Abdominal Exam: Soft, Normal Bowel Sounds. absent: Distended, Firm, Guarding, Rigid, Tenderness, Rebound - Extremities Exam Extremities Exam: Normal Capillary Refill, Normal Inspection, Pedal Edema (+1 pitting edema. ). absent: Calf Tenderness, Tenderness - Neurological Exam Neurological Exam: Alert, Awake, Oriented x3 - Psychiatric Exam Psychiatric exam: Normal Affect, Normal Mood - Skin Skin Exam: Dry, Intact, Normal Color, Warm Assessment and Plan - Assessment and Plan (Free Text) Assessment: 48 yo M with history of uncontrolled HTN and diabetes admitted for evaluation of worsening renal function, and markedly elevated PBNP (secondary to acute on chronic Systolic heart failure). Plan: Viral syndrome - improving - afebrile, wbc wnl - flu negative - CXR: negative for acute lung disease - tylenol prn for pain or headache - blood cx no growth @48hrs, HIV- negative - F/u labs in AM TRISTAN and CKD stage 4, worsening - Bun/Cr: 68/5.6, GFR 13 (last Cr 4.2 on 12/27/18 at [facility], previous one on 10/2018 was 3.8) - Renal US 03/2018: unremarkable - Nephro consulted, recs appreciated-No acute need for renal replacement therapy at this time; F/U Renal Ultrasound, Serum PTH, Phosphorus binder - Restarted lasix 40mg IV - Daily weights - Intake and output - F/u BMP, microalbumin, iPTH in AM, Renal ultrasound, Acute on Chronic Systolic Congestive heart failure Chronic leg edema - PBNP: 15,800 - Echo 02/01/19: LVEF 55-60%, mild to mod LVH, LA mild dilated - Stress test 03/2018: non diagnostic, poor exercise tolerance. - CXR: cardiomegaly, monitor I/O, daily weights - Cardio recs appreciated - Restarted lasix 40mg IV - f/u labs in AM Anemia acute - Hg/hct 9.3/ 28.7 - Fe panel low, ferritin normal, 25OH low, B12 and folate WNL - Started Ferrous Gluconate 324mg TID, multivitamin, weekly Vit D - F/u CBC in AM HTN - uncontrolled - norvasc 10mg QD - Hydralazine TID, and PRN - lisinopril on hold due to recent TRISTAN - Cardio consulted reccs appreciated IDDM, uncontrolled - Hold PO meds, POC 118 - continue Humalog 25units SC daily - SS coverage - accuchecks - Started Atorvastatin 20mg HS Diet - Consitent carbohydrate DVT ppx - heparin BID <Ana Trevino - Last Filed: 02/03/19 12:12> Objective - Vital Signs/Intake and Output Vital Signs (last 24 hours): Temp Pulse Resp BP Pulse Ox 97.9 F 75 20 165/82 H 98 02/03/19 11:57 02/03/19 11:57 02/03/19 11:57 02/03/19 11:57 02/03/19 11:57 - Medications Medications: Current Medications Acetaminophen (Tylenol 325mg Tab) 650 mg PO Q6 PRN PRN Reason: Fever >100.4 F Last Admin: 02/01/19 21:30 Dose: 650 mg Amlodipine Besylate (Norvasc) 10 mg PO DAILY [facility] Last Admin: 02/03/19 09:24 Dose: 10 mg Atorvastatin Calcium (Lipitor) 20 mg PO HS [facility] Last Admin: 02/02/19 23:00 Dose: 20 mg Benzocaine/Menthol (Cepacol Sore Throat) 1 misha PO Q3 PRN PRN Reason: Sore Throat Last Admin: 02/03/19 06:47 Dose: 1 misha Ergocalciferol (Drisdol 50,000 Intl Units Cap) 1 cap PO Q7D [facility] Last Admin: 02/02/19 13:02 Dose: 1 cap Ferrous Gluconate (Fergon) 324 mg PO TID [facility] Last Admin: 02/03/19 09:23 Dose: 324 mg Furosemide (Lasix) 40 mg IVP DAILY [facility] Last Admin: 02/03/19 09:24 Dose: 40 mg Heparin Sodium (Porcine) (Heparin) 5,000 units SC Q12 [facility]; Protocol Last Admin: 02/03/19 09:23 Dose: 5,000 units Hydralazine HCl (Apresoline) 25 mg PO TID [facility] Last Admin: 02/03/19 09:22 Dose: 25 mg Hydralazine HCl (Apresoline) 25 mg PO Q4 PRN PRN Reason: Other BP >170/110 Last Admin: 02/01/19 21:28 Dose: 25 mg Insulin Human Lispro (Humalog) 0 units SC ACCU-CHECK [facility]; Protocol Last Admin: 02/03/19 06:50 Dose: 1 units Insulin Lispro Protam/Lispro Human (Humalog Mix 75/25) 25 units SC DAILY [facility] Last Admin: 02/03/19 09:23 Dose: 25 units Metoprolol Succinate (Toprol Xl) 25 mg PO DAILY [facility] Last Admin: 02/03/19 09:25 Dose: 25 mg Sevelamer HCl (Renagel) 800 mg PO TID [facility] Vitamin B Complex/Vit C/Folic Acid (Nephro-Pati) 1 tab PO DAILY [facility] Last Admin: 02/03/19 09:24 Dose: 1 tab - Labs Labs: 02/03/19 05:05 02/03/19 05:05 PT 14.6 Seconds (9.8-13.1) H 01/31/19 18:00 INR 1.3 01/31/19 18:00 APTT 36.7 Seconds (25.6-37.1) 01/31/19 18:00 Attending/Attestation - Attestation I have personally seen and examined this patient.: Yes I have fully participated in the care of the patient.: Yes I have reviewed all pertinent clinical information, including history, physical exam and plan: Yes Notes (Text): 02/03/19 12:10 agree with findings and plan as above. worsening CKD, holding lasix, as patient edema minimal nephro consult appreciated, renal US pending
[2019-02-03 09:09] LABS: HIV 1&2 ANTIBODY NEGATIVE (NEGATIVE)
[2019-02-03] MEDS: Insulin Lispro Mix 75/25 100 units/ml (HumaLog) 10ml SC SCH (09:23)
[2019-02-03] MEDS: Multivitamin Vitamin B Complex (Nephro-Vite) Tab PO SCH (09:24)
[2019-02-03] MEDS: Metoprolol Succinate 25 mg XL Tab PO SCH (09:25)
--- NOTE | 2019-02-03 10:19 | CP.PCM.PN ---
Subjective - Date & Time of Evaluation Date of Evaluation: 02/03/19 Time of Evaluation: 10:21 - Subjective Subjective: Patient sitting up in the chair Awake and conscious Vital signs stable Leg edema noted Objective - Vital Signs/Intake and Output Vital Signs (last 24 hours): Temp Pulse Resp BP Pulse Ox 97.9 F 82 20 176/80 H 97 02/03/19 08:16 02/03/19 09:25 02/03/19 08:16 02/03/19 09:25 02/03/19 08:16 - Medications Medications: Current Medications Acetaminophen (Tylenol 325mg Tab) 650 mg PO Q6 PRN PRN Reason: Fever >100.4 F Last Admin: 02/01/19 21:30 Dose: 650 mg Amlodipine Besylate (Norvasc) 10 mg PO DAILY [facility] Last Admin: 02/03/19 09:24 Dose: 10 mg Atorvastatin Calcium (Lipitor) 20 mg PO HS [facility] Last Admin: 02/02/19 23:00 Dose: 20 mg Benzocaine/Menthol (Cepacol Sore Throat) 1 misha PO Q3 PRN PRN Reason: Sore Throat Last Admin: 02/03/19 06:47 Dose: 1 misha Ergocalciferol (Drisdol 50,000 Intl Units Cap) 1 cap PO Q7D [facility] Last Admin: 02/02/19 13:02 Dose: 1 cap Ferrous Gluconate (Fergon) 324 mg PO TID [facility] Last Admin: 02/03/19 09:23 Dose: 324 mg Furosemide (Lasix) 40 mg IVP DAILY [facility] Last Admin: 02/03/19 09:24 Dose: 40 mg Heparin Sodium (Porcine) (Heparin) 5,000 units SC Q12 [facility]; Protocol Last Admin: 02/03/19 09:23 Dose: 5,000 units Hydralazine HCl (Apresoline) 25 mg PO TID [facility] Last Admin: 02/03/19 09:22 Dose: 25 mg Hydralazine HCl (Apresoline) 25 mg PO Q4 PRN PRN Reason: Other BP >170/110 Last Admin: 02/01/19 21:28 Dose: 25 mg Insulin Human Lispro (Humalog) 0 units SC ACCU-CHECK [facility]; Protocol Last Admin: 02/03/19 06:50 Dose: 1 units Insulin Lispro Protam/Lispro Human (Humalog Mix 75/25) 25 units SC DAILY [facility] Last Admin: 02/03/19 09:23 Dose: 25 units Metoprolol Succinate (Toprol Xl) 25 mg PO DAILY [facility] Last Admin: 02/03/19 09:25 Dose: 25 mg Vitamin B Complex/Vit C/Folic Acid (Nephro-Pati) 1 tab PO DAILY [facility] Last Admin: 02/03/19 09:24 Dose: 1 tab - Labs Labs: 02/03/19 05:05 02/03/19 05:05 PT 14.6 Seconds (9.8-13.1) H 01/31/19 18:00 INR 1.3 01/31/19 18:00 APTT 36.7 Seconds (25.6-37.1) 01/31/19 18:00 - Constitutional Appears: No Acute Distress - Eye Exam Eye Exam: Conjunctival injection - ENT Exam ENT Exam: Mucous Membranes Moist - Neck Exam Neck Exam: absent: Lymphadenopathy - Respiratory Exam Respiratory Exam: Rales. absent: Rhonchi - Cardiovascular Exam Cardiovascular Exam: absent: Gallop, JVD, Rubs - GI/Abdominal Exam GI & Abdominal Exam: Soft, Normal Bowel Sounds - Extremities Exam Extremities Exam: absent: Calf Tenderness - Back Exam Back Exam: absent: CVA tenderness (L), CVA tenderness (R) - Neurological Exam Neurological Exam: Alert - Psychiatric Exam Psychiatric exam: Normal Affect - Skin Skin Exam: absent: Cyanosis Assessment and Plan - Assessment and Plan (Free Text) Assessment: Acute Kidney Injury (N17.9) versus progression of underlying CKD Acute on chronic CHF exacerbation HTN urgency Diabetic chronic Kidney Disease (E11.22) Hypertensive Chronic Kidney Disease (I12.9) Chronic Kidney Disease (N18.4) Stage 4 with ? mg proteinuria (R80.9) likely due to DM/HTN Anemia (D64.9), obesity Hyperphosphatemia Recommendation Ultrasound of the kidney Venous mapping of upper extremity for possible AV fistula? Phosphorus binder Serum PTH Diuretic Daily weight Glycemic control Phosphorus binder
--- NOTE | 2019-02-03 13:19 | US ---
Date of service: 02/03/2019 PROCEDURE: Ultrasound of the Kidneys HISTORY: [id number] COMPARISON: Renal ultrasound performed 06/20/18 TECHNIQUE: Sonogram of the kidneys. FINDINGS: RIGHT KIDNEY: Measures: 11.6 x 6.2 x 4.9 cm. No obstructing calculus, hydronephrosis, or renal cyst identified. LEFT KIDNEY: Measures: 12.3 x 5.0 x 5.0 cm. No obstructing calculus, hydronephrosis, or renal cyst identified. OTHER FINDINGS: None. IMPRESSION: No obstructing calculus, hydronephrosis, or renal cyst identified.
[2019-02-03 21:13] LABS: CREATININE, RANDOM URINE 74.1 mg/dL
[2019-02-03] MEDS: Nasal Spray(Ocean spray) NAS PRN (22:51)
[2019-02-04 00:46] VITALS: RESP 18
[2019-02-04] MEDS: Nasal Spray(Ocean spray) NAS PRN (03:54)
[2019-02-04 06:01] LABS: MEAN CORPUSCULAR HEMOGLOBIN 25.3 pg (27.0-31.0); RBC 3.55 Mil/uL (4.40-5.90); WHITE BLOOD COUNT 11.6 K/uL (4.8-10.8)
[2019-02-04 06:03] LABS: CALCIUM 7.4 mg/dL (8.4-10.2)
[2019-02-04] MEDS: Insulin Lispro (humaLOG) 100 Units/ml Inj SC SCH ×2 (08:57→12:05)
[2019-02-04] MEDS: Multivitamin Vitamin B Complex (Nephro-Vite) Tab PO SCH (08:57)
[2019-02-04] MEDS ORDERED: Metoprolol Succinate 50 mg XL Tab PO SCH (09:00)
[2019-02-04] MEDS: Insulin Lispro Mix 75/25 100 units/ml (HumaLog) 10ml SC SCH (09:01)
[2019-02-04] MEDS ORDERED: Albuterol-Ipratrop 3 mg / 0.5 (3 ml) UD INH PRN (09:41)
[2019-02-04] MEDS ORDERED: Amoxicillin-Clav 875-125 mg Tab PO SCH (09:45)
[2019-02-04 11:48] VITALS: BP 139/78; PULSE 86; TEMP 97.6; O2SAT 97
--- NOTE | 2019-02-04 12:14 | CP.PCM.PN ---
<Radha Christianson - Last Filed: 02/04/19 12:15> Subjective - Date & Time of Evaluation Date of Evaluation: 02/04/19 Time of Evaluation: 10:00 - Subjective Subjective: Patient seen and examined at bedside. Reports productive cough. Denies chills, nausea, vomiting, abdominal pain, chest pain or shortness of breath. No acute ev ents overnight. Objective - Vital Signs/Intake and Output Vital Signs (last 24 hours): Temp Pulse Resp BP Pulse Ox 97.6 F 86 18 139/78 97 02/04/19 11:47 02/04/19 12:04 02/04/19 11:47 02/04/19 12:04 02/04/19 11:47 - Medications Medications: Current Medications Acetaminophen (Tylenol 325mg Tab) 650 mg PO Q6 PRN PRN Reason: Fever >100.4 F Last Admin: 02/01/19 21:30 Dose: 650 mg Albuterol/Ipratropium (Duoneb 3 Mg/0.5 Mg (3 Ml) Ud) 3 ml INH RQ6 PRN PRN Reason: Shortness of Breath Amlodipine Besylate (Norvasc) 10 mg PO DAILY [facility] Last Admin: 02/04/19 08:56 Dose: 10 mg Amoxicillin/Clavulanate Potassium (Augmentin 875 Mg-125 Mg Tab) 1 tab PO Q12 [facility]; Protocol Last Admin: 02/04/19 11:14 Dose: 1 tab Atorvastatin Calcium (Lipitor) 20 mg PO HS [facility] Last Admin: 02/03/19 21:46 Dose: 20 mg Benzocaine/Menthol (Cepacol Sore Throat) 1 misha PO Q3 PRN PRN Reason: Sore Throat Last Admin: 02/03/19 21:45 Dose: 1 misha Benzonatate (Tessalon Perles) 100 mg PO Q8 PRN PRN Reason: Cough Ergocalciferol (Drisdol 50,000 Intl Units Cap) 1 cap PO Q7D [facility] Last Admin: 02/02/19 13:02 Dose: 1 cap Ferrous Gluconate (Fergon) 324 mg PO TID [facility] Last Admin: 02/04/19 12:04 Dose: 324 mg Furosemide (Lasix) 40 mg PO DAILY [facility] Last Admin: 02/04/19 09:01 Dose: 40 mg Heparin Sodium (Porcine) (Heparin) 5,000 units SC Q12 [facility]; Protocol Last Admin: 02/04/19 08:59 Dose: 5,000 units Hydralazine HCl (Apresoline) 25 mg PO TID [facility] Last Admin: 02/04/19 12:04 Dose: 25 mg Hydralazine HCl (Apresoline) 25 mg PO Q4 PRN PRN Reason: Other BP >170/110 Last Admin: 02/01/19 21:28 Dose: 25 mg Insulin Human Lispro (Humalog) 0 units SC ACCU-CHECK [facility]; Protocol Last Admin: 02/04/19 12:05 Dose: 1 units Insulin Lispro Protam/Lispro Human (Humalog Mix 75/25) 25 units SC DAILY [facility] Last Admin: 02/04/19 09:01 Dose: 25 units Metoprolol Succinate (Toprol Xl) 50 mg PO DAILY [facility] Last Admin: 02/04/19 08:59 Dose: 50 mg Sevelamer HCl (Renagel) 800 mg PO TID [facility] Last Admin: 02/04/19 12:06 Dose: 800 mg Sodium Chloride ([place] Nasal [place]) 1 sprays KEVIN Q4 [facility] Last Admin: 02/04/19 12:08 Dose: 1 spray Vitamin B Complex/Vit C/Folic Acid (Nephro-Pati) 1 tab PO DAILY [facility] Last Admin: 02/04/19 08:57 Dose: 1 tab - Labs Labs: 02/04/19 04:50 02/04/19 04:50 PT 14.6 Seconds (9.8-13.1) H 01/31/19 18:00 INR 1.3 01/31/19 18:00 APTT 36.7 Seconds (25.6-37.1) 01/31/19 18:00 - Constitutional Appears: Non-toxic, No Acute Distress - Eye Exam Eye Exam: Normal appearance - ENT Exam ENT Exam: Mucous Membranes Moist, Normal Exam, Normal Oropharynx (No exudates, no erythema present ) - Respiratory Exam Respiratory Exam: Clear to Ausculation Bilateral, NORMAL BREATHING PATTERN - Cardiovascular Exam Cardiovascular Exam: REGULAR RHYTHM, +S1, +S2 - GI/Abdominal Exam GI & Abdominal Exam: Soft, Normal Bowel Sounds. absent: Distended, Firm, Guarding, Rigid, Tenderness, Rebound - Extremities Exam Extremities Exam: Normal Capillary Refill, Normal Inspection, Pedal Edema (+1 pedal edema). absent: Calf Tenderness, Tenderness - Neurological Exam Neurological Exam: Alert, Awake, Oriented x3 - Psychiatric Exam Psychiatric exam: Normal Affect, Normal Mood - Skin Skin Exam: Dry, Intact, Normal Color, Warm Assessment and Plan - Assessment and Plan (Free Text) Assessment: 48 yo M with history of uncontrolled HTN and diabetes admitted for evaluation of worsening renal function, and markedly elevated PBNP (secondary to acute on chronic Systolic heart failure). Plan: Upper respiratory infection - afebrile, wbc wnl - flu negative - CXR: negative for acute lung disease - tylenol prn for pain or headache - blood cx no growth @48hrs, HIV- negative - Start Augmentin; Duoneb; tessalon pearls - F/u labs in AM TRISTAN and CKD stage 4, worsening - Bun/Cr: 78/5.6, GFR 13 (last Cr 4.2 on 12/27/18 at [facility], previous one on 10/2018 was 3.8) - Renal US 03/2018: unremarkable - Nephro consulted, recs appreciated-No acute need for renal replacement therapy at this time; F/U Renal Ultrasound, Serum PTH, Phosphorus binder - Restarted lasix 40mg IV - Daily weights - Intake and output - F/u BMP, microalbumin, iPTH in AM, - Renal ultrasound- No obstructing calculus, hydronephrosis, or renal cyst - possible venous mapping Acute on Chronic Systolic Congestive heart failure Chronic leg edema - PBNP: 15,800 - Echo 02/01/19: LVEF 55-60%, mild to mod LVH, LA mild dilated - Stress test 03/2018: non diagnostic, poor exercise tolerance. - CXR: cardiomegaly, monitor I/O, daily weights - Cardio recs appreciated - Furosemide 40mg po daily - f/u labs in AM Anemia acute - Hg/hct 9.0/ 28.0 - Fe panel low, ferritin normal, 25OH low, B12 and folate WNL - Started Ferrous Gluconate 324mg TID, multivitamin, weekly Vit D - F/u CBC in AM HTN - uncontrolled - norvasc 10mg QD - Hydralazine TID, and PRN - lisinopril on hold due to recent TRISTAN - Metoprolol 25mg increased to 50mg at this time - Cardio consulted reccs appreciated IDDM, uncontrolled - Hold PO meds, POC 118 - continue Humalog 25units SC daily - SS coverage - accuchecks - Started Atorvastatin 20mg HS Diet - Consistent carbohydrate DVT ppx - heparin BID <Susan Doherty - Last Filed: 02/04/19 13:01> Objective - Vital Signs/Intake and Output Vital Signs (last 24 hours): Temp Pulse Resp BP Pulse Ox 97.6 F 86 18 139/78 97 02/04/19 11:47 02/04/19 12:04 02/04/19 11:47 02/04/19 12:04 02/04/19 11:47 - Medications Medications: Current Medications Acetaminophen (Tylenol 325mg Tab) 650 mg PO Q6 PRN PRN Reason: Fever >100.4 F Last Admin: 02/01/19 21:30 Dose: 650 mg Albuterol/Ipratropium (Duoneb 3 Mg/0.5 Mg (3 Ml) Ud) 3 ml INH RQ6 PRN PRN Reason: Shortness of Breath Amlodipine Besylate (Norvasc) 10 mg PO DAILY [facility] Last Admin: 02/04/19 08:56 Dose: 10 mg Amoxicillin/Clavulanate Potassium (Augmentin 875 Mg-125 Mg Tab) 1 tab PO Q12 [facility]; Protocol Last Admin: 02/04/19 11:14 Dose: 1 tab Atorvastatin Calcium (Lipitor) 20 mg PO HS [facility] Last Admin: 02/03/19 21:46 Dose: 20 mg Benzocaine/Menthol (Cepacol Sore Throat) 1 misha PO Q3 PRN PRN Reason: Sore Throat Last Admin: 02/03/19 21:45 Dose: 1 misha Benzonatate (Tessalon Perles) 100 mg PO Q8 PRN PRN Reason: Cough Ergocalciferol (Drisdol 50,000 Intl Units Cap) 1 cap PO Q7D [facility] Last Admin: 02/02/19 13:02 Dose: 1 cap Ferrous Gluconate (Fergon) 324 mg PO TID [facility] Last Admin: 02/04/19 12:04 Dose: 324 mg Furosemide (Lasix) 40 mg PO DAILY [facility] Last Admin: 02/04/19 09:01 Dose: 40 mg Heparin Sodium (Porcine) (Heparin) 5,000 units SC Q12 [facility]; Protocol Last Admin: 02/04/19 08:59 Dose: 5,000 units Hydralazine HCl (Apresoline) 25 mg PO TID [facility] Last Admin: 02/04/19 12:04 Dose: 25 mg Hydralazine HCl (Apresoline) 25 mg PO Q4 PRN PRN Reason: Other BP >170/110 Last Admin: 02/01/19 21:28 Dose: 25 mg Insulin Human Lispro (Humalog) 0 units SC ACCU-CHECK [facility]; Protocol Last Admin: 02/04/19 12:05 Dose: 1 units Insulin Lispro Protam/Lispro Human (Humalog Mix 75/25) 25 units SC DAILY [facility] Last Admin: 02/04/19 09:01 Dose: 25 units Metoprolol Succinate (Toprol Xl) 50 mg PO DAILY [facility] Last Admin: 02/04/19 08:59 Dose: 50 mg Sevelamer HCl (Renagel) 800 mg PO TID [facility] Last Admin: 02/04/19 12:06 Dose: 800 mg Sodium Chloride ([place] Nasal [place]) 1 sprays KEVIN Q4 [facility] Last Admin: 02/04/19 12:08 Dose: 1 spray Vitamin B Complex/Vit C/Folic Acid (Nephro-Pati) 1 tab PO DAILY [facility] Last Admin: 02/04/19 08:57 Dose: 1 tab - Labs Labs: 02/04/19 04:50 02/04/19 04:50 PT 14.6 Seconds (9.8-13.1) H 01/31/19 18:00 INR 1.3 01/31/19 18:00 APTT 36.7 Seconds (25.6-37.1) 01/31/19 18:00 Attending/Attestation - Attestation I have personally seen and examined this patient.: Yes I have fully participated in the care of the patient.: Yes I have reviewed all pertinent clinical information, including history, physical exam and plan: Yes Notes (Text): Acute on Chronic CHF , systolic dysfunction, EF 55% TRISTAN on CKD Stage IV URI DM Type II HTN - change Lasix to PO 40 mg once daily, cont Hydralazine, Norvasc 10 mg daily and Toprol XL 25 mg daily -cont 75/25 Insulin, accucheck with coverage - Nephrology following pt- pt refusing HD for now - pt will be followed up closely by Dr Tejeda for his Renal Failure - Epogen x 1 and as outpt - SOB resolved , still with sorethroat and nasal congestion, start Amoxicillin
--- NOTE | 2019-02-04 12:26 | CP.PCM.PN ---
Subjective - Date & Time of Evaluation Date of Evaluation: 02/04/19 Time of Evaluation: 12:32 - Subjective Subjective: Patient sitting up in the chair Patient still complaining of sore throat Somewhat less shortness of breath Vital signs noted stable Objective - Vital Signs/Intake and Output Vital Signs (last 24 hours): Temp Pulse Resp BP Pulse Ox 97.6 F 86 18 139/78 97 02/04/19 11:47 02/04/19 12:04 02/04/19 11:47 02/04/19 12:04 02/04/19 11:47 - Medications Medications: Current Medications Acetaminophen (Tylenol 325mg Tab) 650 mg PO Q6 PRN PRN Reason: Fever >100.4 F Last Admin: 02/01/19 21:30 Dose: 650 mg Albuterol/Ipratropium (Duoneb 3 Mg/0.5 Mg (3 Ml) Ud) 3 ml INH RQ6 PRN PRN Reason: Shortness of Breath Amlodipine Besylate (Norvasc) [address] [facility] Last Admin: 02/04/19 08:56 Dose: 10 mg Amoxicillin/Clavulanate Potassium (Augmentin 875 Mg-125 Mg Tab) [address] [facility]; Protocol Last Admin: 02/04/19 11:14 Dose: 1 tab Atorvastatin Calcium (Lipitor) [address] [facility] Last Admin: 02/03/19 21:46 Dose: 20 mg Benzocaine/Menthol (Cepacol Sore Throat) 1 misha PO Q3 PRN PRN Reason: Sore Throat Last Admin: 02/03/19 21:45 Dose: 1 misha Benzonatate (Tessalon Perles) 100 mg PO Q8 PRN PRN Reason: Cough Ergocalciferol (Drisdol 50,000 Intl Units Cap) [address] [facility] Last Admin: 02/02/19 13:02 Dose: 1 cap Ferrous Gluconate (Fergon) [address] [facility] Last Admin: 02/04/19 12:04 Dose: 324 mg Furosemide (Lasix) [address] [facility] Last Admin: 02/04/19 09:01 Dose: 40 mg Heparin Sodium (Porcine) (Heparin) 5,[address] [facility]; Protocol Last Admin: 02/04/19 08:59 Dose: 5,000 units Hydralazine HCl (Apresoline) [address] [facility] Last Admin: 02/04/19 12:04 Dose: 25 mg Hydralazine HCl (Apresoline) 25 mg PO Q4 PRN PRN Reason: Other BP >170/110 Last Admin: 02/01/19 21:28 Dose: 25 mg Insulin Human Lispro (Humalog) 0 units SC ACCU-CHECK [facility]; Protocol Last Admin: 02/04/19 12:05 Dose: 1 units Insulin Lispro Protam/Lispro Human (Humalog Mix 75/25) [address] [facility] Last Admin: 02/04/19 09:01 Dose: 25 units Metoprolol Succinate (Toprol Xl) [address] [facility] Last Admin: 02/04/19 08:59 Dose: 50 mg Sevelamer HCl (Renagel) [address] [facility] Last Admin: 02/04/19 12:06 Dose: 800 mg Sodium Chloride ([place] Nasal [place]) [address] [facility] Last Admin: 02/04/19 12:08 Dose: 1 spray Vitamin B Complex/Vit C/Folic Acid (Nephro-Pati) [address] [facility] Last Admin: 02/04/19 08:57 Dose: 1 tab - Labs Labs: 02/04/19 04:50 02/04/19 04:50 PT 14.6 Seconds (9.8-13.1) H 01/31/19 18:00 INR 1.3 01/31/19 18:00 APTT 36.7 Seconds (25.6-37.1) 01/31/19 18:00 - Constitutional Appears: No Acute Distress - Eye Exam Eye Exam: Conjunctival injection - ENT Exam ENT Exam: Mucous Membranes Moist - Neck Exam Neck Exam: absent: Lymphadenopathy - Respiratory Exam Respiratory Exam: absent: Chest Wall Tenderness - Cardiovascular Exam Cardiovascular Exam: absent: Gallop, JVD, Rubs - GI/Abdominal Exam GI & Abdominal Exam: Soft, Normal Bowel Sounds - Extremities Exam Extremities Exam: absent: Calf Tenderness - Back Exam Back Exam: absent: CVA tenderness (L), CVA tenderness (R) - Neurological Exam Neurological Exam: Alert - Psychiatric Exam Psychiatric exam: Normal Affect - Skin Skin Exam: absent: Cyanosis Assessment and Plan - Assessment and Plan (Free Text) Assessment: Acute Kidney Injury (N17.9) versus progression of underlying CKD Acute on chronic CHF exacerbation HTN urgency Diabetic chronic Kidney Disease (E11.22) Hypertensive Chronic Kidney Disease (I12.9) Chronic Kidney Disease (N18.5) Stage 5 with 9.6 gm proteinuria (R80.9) likely due to DM/HTN Anemia (D64.9), obesity Hyperphosphatemia Recommendation I spoke to the patient for dialysis, he appear not willing right now for dialysis therefore he may be agreeable in a week time. I asked the patient to see me in the office for follow-up in about less than a week. Patient has significant proteinuria 9.6 gm. Patient will need kidney biopsy when he is ready and the edema has subsided somewhat and his condition is improving . EPO for the anemia start Epogen 3000 unit subcu 3 times a week and as outpatient he would need long acting such as Aranesp
[2019-02-04] MEDS ORDERED: EPOETIN ALFA 2000 UNIT/ML SC ONE (12:56)
[2019-02-04] MEDS ORDERED: Nasal Spray(Ocean spray) NAS SCH (13:00)
--- NOTE | 2019-02-04 13:23 | CP.PCM.DIS ---
<Radha Christianson - Last Filed: 02/04/19 13:20> Provider - Provider Date of Admission: 01/31/19 20:23 Attending physician: Pedro Redmond MD Consults: 01/31/19 21:38 Cardiology Consult Routine Comment: Consulting Provider: Bertrand Whitley V Consulting Physician: Bertrand Whitley V Reason for Consult: CHF 01/31/19 21:51 Nephrology Consult Stat Comment: Consulting Provider: Jaswant Tejeda Consulting Physician: Jaswant Tejeda Reason for Consult: CKD, worsening renal function Time Spent in preparation of Discharge (in minutes): 30 Diagnosis - Discharge Diagnosis (1) CKD (chronic kidney disease) stage 4, GFR 15-29 ml/min Status: Acute (2) Acute on chronic systolic congestive heart failure Status: Acute (3) URI (upper respiratory infection) Status: Acute (4) Anemia Status: Acute Priority: Medium (5) HTN (hypertension) Status: Acute Hospital Course - Lab Results Lab Results: Micro Results 01/31/19 18:20 Blood-Venous Blood Culture - Preliminary NO GROWTH AFTER 3 DAYS 01/31/19 18:00 Blood-Venous Blood Culture - Preliminary NO GROWTH AFTER 3 DAYS Most Recent Lab Values WBC 11.6 K/uL (4.8-10.8) H 02/04/19 04:50 RBC 3.55 Mil/uL (4.40-5.90) L 02/04/19 04:50 Hgb 9.0 g/dL (12.0-18.0) L 02/04/19 04:50 Hct 28.0 % (35.0-51.0) L 02/04/19 04:50 MCV 79.0 fl (80.0-94.0) L 02/04/19 04:50 MCH 25.3 pg (27.0-31.0) L 02/04/19 04:50 MCHC 32.0 g/dL (33.0-37.0) L 02/04/19 04:50 RDW 18.0 % (11.5-14.5) H 02/04/19 04:50 Plt Count 248 K/uL (130-400) 02/04/19 04:50 MPV 9.0 fl (7.2-11.7) 02/03/19 05:05 Neut % (Auto) 77.2 % (50.0-75.0) H 02/03/19 05:05 Lymph % (Auto) 7.3 % (20.0-40.0) L 02/03/19 05:05 Snyder % (Auto) 11.8 % (0.0-10.0) H 02/03/19 05:05 Eos % (Auto) 3.3 % (0.0-4.0) 02/03/19 05:05 Baso % (Auto) 0.4 % (0.0-2.0) 02/03/19 05:05 Neut # (Auto) 8.1 K/uL (1.8-7.0) H 02/03/19 05:05 Lymph # (Auto) 0.8 K/uL (1.0-4.3) L 02/03/19 05:05 Snyder # (Auto) 1.2 K/uL (0.0-0.8) H 02/03/19 05:05 Eos # (Auto) 0.3 K/uL (0.0-0.7) 02/03/19 05:05 Baso # (Auto) 0.0 K/uL (0.0-0.2) 02/03/19 05:05 Neutrophils % (Manual) 87 % (42-75) H 01/31/19 18:00 Lymphocytes % (Manual) 5 % (20-50) L 01/31/19 18:00 Monocytes % (Manual) 7 % (0-10) 01/31/19 18:00 Basophils % (Manual) 1 % (0-2) 01/31/19 18:00 Platelet Estimate Normal (NORMAL) 01/31/19 18:00 Anisocytosis (manual) Slight 01/31/19 18:00 PT 14.6 Seconds (9.8-13.1) H 01/31/19 18:00 INR 1.3 01/31/19 18:00 APTT 36.7 Seconds (25.6-37.1) 01/31/19 18:00 pO2 44 mm/Hg (30-55) 01/31/19 18:08 VBG pH 7.36 (7.32-7.43) 01/31/19 18:08 VBG pCO2 39 mmHg (40-60) L 01/31/19 18:08 VBG HCO3 22.0 mmol/L 01/31/19 18:08 VBG Total CO2 23.2 mmol/L (22-28) 01/31/19 18:08 VBG O2 Sat (Calc) 86.3 % (40-65) H 01/31/19 18:08 VBG Base Excess -3.1 mmol/L (0.0-2.0) L 01/31/19 18:08 VBG Potassium 4.4 mmol/L (3.6-5.2) 01/31/19 18:08 Sodium 135.0 mmol/L (132-148) 01/31/19 18:08 Chloride 105.0 mmol/L (98-107) 01/31/19 18:08 Glucose 178 mg/dL (75-110) H 01/31/19 18:08 Lactate 0.8 mmol/L (0.7-2.1) 01/31/19 18:08 FiO2 21.0 % 01/31/19 18:08 Sodium 134 mmol/l (132-148) 02/04/19 04:50 Potassium 4.5 MMOL/L (3.6-5.0) 02/04/19 04:50 Chloride 103 mmol/L (98-107) 02/04/19 04:50 Carbon Dioxide 20 mmol/L (22-30) L 02/04/19 04:50 Anion Gap 16 (10-20) 02/04/19 04:50 BUN 78 mg/dl (9-20) H 02/04/19 04:50 Creatinine 5.6 mg/dl (0.8-1.5) H 02/04/19 04:50 Est GFR ( Amer) 13 02/04/19 04:50 Est GFR (Non-Af Amer) 11 02/04/19 04:50 POC Glucose (mg/dL) 181 mg/dL (65-110) H 02/04/19 10:34 Random Glucose 126 mg/dL (75-110) H 02/04/19 04:50 Calcium 7.4 mg/dL (8.4-10.2) L 02/04/19 04:50 Phosphorus 5.6 mg/dl (2.5-4.5) H 02/02/19 04:30 Magnesium 1.7 MG/DL (1.6-2.3) 02/02/19 04:30 Iron 19 ug/dL (49-181) L 02/01/19 13:46 TIBC 236 ug/dL (250-450) L 02/01/19 13:46 % Saturation 8 % (20-55) L 02/01/19 13:46 Ferritin 99.7 ng/Ml (17.9-464) 02/01/19 13:46 Total Bilirubin 0.3 mg/dl (0.2-1.3) 02/01/19 04:25 AST 13 U/L (17-59) L D 02/01/19 04:25 ALT 10 U/L (21-72) L 02/01/19 04:25 Alkaline Phosphatase 103 U/L (38-126) 02/01/19 04:25 Troponin I 0.0610 ng/mL (0.00-0.120) 01/31/19 18:00 NT-Pro-B Natriuret Pep 88459 pg/ml (0-450) H 01/31/19 18:00 Total Protein 6.4 G/DL (6.3-8.2) 02/01/19 04:25 Albumin 3.0 g/dL (3.5-5.0) L 02/01/19 04:25 Globulin 3.4 gm/dL (2.2-3.9) 02/01/19 04:25 Albumin/Globulin Ratio 0.9 (1.0-2.1) L 02/01/19 04:25 Triglycerides 153 mg/DL (0-149) H D 02/02/19 04:30 Cholesterol 194 mg/dL (0-199) 02/02/19 04:30 LDL Cholesterol Direct 121 mg/dL (0-129) 02/02/19 04:30 HDL Cholesterol 20 MG/DL (30-70) L 02/02/19 04:30 Vitamin B12 384 pg/mL (239-931) 02/01/19 13:46 25-OH Vitamin D Total < 12.8 NG/ML (30.0-100.0) L 02/02/19 04:30 Folate 8.9 ng/mL 02/01/19 13:46 PTH Intact Whole Molec 197 pg/mL (14-64) H 02/01/19 13:46 Venous Blood Potassium 4.4 mmol/L (3.6-5.2) 01/31/19 18:08 Urine Color Straw (YELLOW) 02/01/19 20:40 Urine Clarity Clear (Clear) 02/01/19 20:40 Urine pH 6.0 (5.0-8.0) 02/01/19 20:40 Ur Specific [place] 1.009 (1.003-1.030) 02/01/19 20:40 Urine Protein >=500 mg/dL (NEGATIVE) 02/01/19 20:40 Urine Glucose (UA) 50 mg/dL (NEGATIVE) 02/01/19 20:40 Urine Ketones Negative mg/dL (NEGATIVE) 02/01/19 20:40 Urine Blood Small (NEGATIVE) 02/01/19 20:40 Urine Nitrate Negative (NEGATIVE) 02/01/19 20:40 Urine Bilirubin Negative (NEGATIVE) 02/01/19 20:40 Urine Urobilinogen 0.2-1.0 mg/dL (0.2-1.0) 02/01/19 20:40 Ur Leukocyte Esterase Neg Mono/uL (Negative) 02/01/19 20:40 Urine RBC (Auto) 7 /hpf (0-3) H 02/01/19 20:40 Urine Microscopic WBC 1 /hpf (0-5) 02/01/19 20:40 Hyaline Casts 0-2 /hpf (0-2) 02/01/19 20:40 Ur Random Creatinine 74.1 mg/dL 02/03/19 19:30 U Random Total Protein 716.0 mg/dL (0.0-12.0) H 02/03/19 19:30 Urine Total Volume 259.8 mg/dL 02/01/19 10:25 Microalb/Creat Ratio 4723 (<30) H 02/01/19 10:25 Hep Bs Antigen Negative (NEGATIVE) 02/01/19 13:46 Hep Bs Antibody Negative (NEGATIVE) 02/01/19 13:46 Hep B Core IgM Ab Negative (NEGATIVE) 02/01/19 13:46 Hepatitis C Antibody Negative (NEGATIVE) 02/01/19 13:46 HIV 1&2 Antibody Screen Negative (NEGATIVE) 02/01/19 13:46 Influenza Typ A,B (EIA) Negative for flu a/b (NEGATIVE) 01/31/19 17:12 - Hospital Course Hospital Course: 48 year old male with hx of Diabetes, HTN, Hypercholesterolemia, CKD stage 4 presented with a flu-like symptoms; developmental delay per mother. Lab work demonstrated worsening renal function, markedly increased pro-BNP. Concerned for fluid overload and or CHF. Patient's renal function continued to worsen (CKD 4 secondary to DM and HTN) and Nephrology consult was placed. Patient was offered Hemodialysis but declined at this time, will follow up with [facility] as outpatient. Hemodynamically stable during stay on the floor. Patient had URI like symptoms and was started on Augmentin with duoneb and tessalon pearls for cough. BP medications were changed given uncontrolled HTN. Patient was also put on furosemide 40 IVP given acute on chronic systolic heart failure. For anemia, patient was started on ferrous gluconate TID. Patient was given one dose of EPOGEN prior to discharge. Will follow up with Dr. Tejeda. Discharge Exam - Head Exam Head Exam: ATRAUMATIC, NORMOCEPHALIC - Eye Exam Eye Exam: Normal appearance - ENT Exam ENT Exam: Mucous Membranes Moist, Normal Oropharynx (no erythema or exudates noted on exam.) - Respiratory Exam Respiratory Exam: Clear to PA & Lateral, NORMAL BREATHING PATTERN, UNREMARKABLE - Cardiovascular Exam Cardiovascular Exam: +S1, +S2 - GI/Abdominal Exam GI & Abdominal Exam: Normal Bowel Sounds, Unremarkable - Extremities Exam Extremities exam: pedal edema (+1 pedal edema) - Neurological Exam Neurological exam: Alert, Oriented x3 - Psychiatric Exam Psychiatric exam: Normal Affect, Normal Mood - Skin Skin Exam: Dry, Intact, Normal Color, Warm Discharge Plan - Discharge Medications Prescriptions: Amoxicillin/Potassium Clav [Augmentin 500-125 Tablet] 1 each PO BID 7 Days #14 tablet Azithromycin [Zithromax Tri-[place]] 500 mg PO DAILY #3 tablet Benzonatate [Tessalon Perles] 100 mg PO TID PRN 7 Days #21 sgl PRN Reason: Cough Calcitriol 0.5 mcg PO DAILY 30 Days #30 capsule Ferrous Gluconate [Fergon] 324 mg PO TID 30 Days #90 tab Fluticasone Propionate [Flonase] 2 spr KEVIN DAILY #1 bottle Furosemide [Lasix] 40 mg PO DAILY #30 tab hydrALAZINE [Apresoline] 25 mg PO TID 30 Days #90 tab Metoprolol Succinate XL [Toprol XL] 50 mg PO DAILY 30 Days #30 tab Vitamin B Complex/Vit C/Folic [Nephro-Pati] 1 tab PO DAILY #30 tab - Follow Up Plan Condition: GOOD Disposition: HOME/ ROUTINE Patient education suggested?: Yes Instructions: Viral Upper Respiratory Infection, Adult (DC), Heart Failure (DC), Pacemaker (DC), Pulmonary Edema (DC), Acute Kidney Injury (DC), Renal Failure Diet (DC), Ascites (DC) Additional Instructions: Follow up with doctor Tejeda on 02/13/19 3:20pm follow up with 02/10/19 10:00am Referrals: Bertrand Whitley MD [Staff Provider] - Oli Schmidt DO [Doctor Osteopathy] - (0) Prateek Tejeda MD [Staff Provider] - Isaias Bergman MD [Staff Provider] - <Susan Doherty - Last Filed: 02/04/19 14:50> Provider - Provider Date of Admission: 01/31/19 20:23 Attending physician: Pedro Redmond MD Consults: 01/31/19 21:38 Cardiology Consult Routine Comment: Consulting Provider: Bertrand Whitley V Consulting Physician: Bertrand Whitley V Reason for Consult: CHF 01/31/19 21:51 Nephrology Consult Stat Comment: Consulting Provider: Jaswant Tejeda Consulting Physician: Jaswant Tejeda Reason for Consult: CKD, worsening renal function Hospital Course - Lab Results Lab Results: Micro Results 01/31/19 18:20 Blood-Venous Blood Culture - Preliminary NO GROWTH AFTER 3 DAYS 01/31/19 18:00 Blood-Venous Blood Culture - Preliminary NO GROWTH AFTER 3 DAYS Most Recent Lab Values WBC 11.6 K/uL (4.8-10.8) H 02/04/19 04:50 RBC 3.55 Mil/uL (4.40-5.90) L 02/04/19 04:50 Hgb 9.0 g/dL (12.0-18.0) L 02/04/19 04:50 Hct 28.0 % (35.0-51.0) L 02/04/19 04:50 MCV 79.0 fl (80.0-94.0) L 02/04/19 04:50 MCH 25.3 pg (27.0-31.0) L 02/04/19 04:50 MCHC 32.0 g/dL (33.0-37.0) L 02/04/19 04:50 RDW 18.0 % (11.5-14.5) H 02/04/19 04:50 Plt Count 248 K/uL (130-400) 02/04/19 04:50 MPV 9.0 fl (7.2-11.7) 02/03/19 05:05 Neut % (Auto) 77.2 % (50.0-75.0) H 02/03/19 05:05 Lymph % (Auto) 7.3 % (20.0-40.0) L 02/03/19 05:05 Snyder % (Auto) 11.8 % (0.0-10.0) H 02/03/19 05:05 Eos % (Auto) 3.3 % (0.0-4.0) 02/03/19 05:05 Baso % (Auto) 0.4 % (0.0-2.0) 02/03/19 05:05 Neut # (Auto) 8.1 K/uL (1.8-7.0) H 02/03/19 05:05 Lymph # (Auto) 0.8 K/uL (1.0-4.3) L 02/03/19 05:05 Snyder # (Auto) 1.2 K/uL (0.0-0.8) H 02/03/19 05:05 Eos # (Auto) 0.3 K/uL (0.0-0.7) 02/03/19 05:05 Baso # (Auto) 0.0 K/uL (0.0-0.2) 02/03/19 05:05 Neutrophils % (Manual) 87 % (42-75) H 01/31/19 18:00 Lymphocytes % (Manual) 5 % (20-50) L 01/31/19 18:00 Monocytes % (Manual) 7 % (0-10) 01/31/19 18:00 Basophils % (Manual) 1 % (0-2) 01/31/19 18:00 Platelet Estimate Normal (NORMAL) 01/31/19 18:00 Anisocytosis (manual) Slight 01/31/19 18:00 PT 14.6 Seconds (9.8-13.1) H 01/31/19 18:00 INR 1.3 01/31/19 18:00 APTT 36.7 Seconds (25.6-37.1) 01/31/19 18:00 pO2 44 mm/Hg (30-55) 01/31/19 18:08 VBG pH 7.36 (7.32-7.43) 01/31/19 18:08 VBG pCO2 39 mmHg (40-60) L 01/31/19 18:08 VBG HCO3 22.0 mmol/L 01/31/19 18:08 VBG Total CO2 23.2 mmol/L (22-28) 01/31/19 18:08 VBG O2 Sat (Calc) 86.3 % (40-65) H 01/31/19 18:08 VBG Base Excess -3.1 mmol/L (0.0-2.0) L 01/31/19 18:08 VBG Potassium 4.4 mmol/L (3.6-5.2) 01/31/19 18:08 Sodium 135.0 mmol/L (132-148) 01/31/19 18:08 Chloride 105.0 mmol/L (98-107) 01/31/19 18:08 Glucose 178 mg/dL (75-110) H 01/31/19 18:08 Lactate 0.8 mmol/L (0.7-2.1) 01/31/19 18:08 FiO2 21.0 % 01/31/19 18:08 Sodium 134 mmol/l (132-148) 02/04/19 04:50 Potassium 4.5 MMOL/L (3.6-5.0) 02/04/19 04:50 Chloride 103 mmol/L (98-107) 02/04/19 04:50 Carbon Dioxide 20 mmol/L (22-30) L 02/04/19 04:50 Anion Gap 16 (10-20) 02/04/19 04:50 BUN 78 mg/dl (9-20) H 02/04/19 04:50 Creatinine 5.6 mg/dl (0.8-1.5) H 02/04/19 04:50 Est GFR ( Amer) 13 02/04/19 04:50 Est GFR (Non-Af Amer) 11 02/04/19 04:50 POC Glucose (mg/dL) 181 mg/dL (65-110) H 02/04/19 10:34 Random Glucose 126 mg/dL (75-110) H 02/04/19 04:50 Calcium 7.4 mg/dL (8.4-10.2) L 02/04/19 04:50 Phosphorus 5.6 mg/dl (2.5-4.5) H 02/02/19 04:30 Magnesium 1.7 MG/DL (1.6-2.3) 02/02/19 04:30 Iron 19 ug/dL (49-181) L 02/01/19 13:46 TIBC 236 ug/dL (250-450) L 02/01/19 13:46 % Saturation 8 % (20-55) L 02/01/19 13:46 Ferritin 99.7 ng/Ml (17.9-464) 02/01/19 13:46 Total Bilirubin 0.3 mg/dl (0.2-1.3) 02/01/19 04:25 AST 13 U/L (17-59) L D 02/01/19 04:25 ALT 10 U/L (21-72) L 02/01/19 04:25 Alkaline Phosphatase 103 U/L (38-126) 02/01/19 04:25 Troponin I 0.0610 ng/mL (0.00-0.120) 01/31/19 18:00 NT-Pro-B Natriuret Pep 32931 pg/ml (0-450) H 01/31/19 18:00 Total Protein 6.4 G/DL (6.3-8.2) 02/01/19 04:25 Albumin 3.0 g/dL (3.5-5.0) L 02/01/19 04:25 Globulin 3.4 gm/dL (2.2-3.9) 02/01/19 04:25 Albumin/Globulin Ratio 0.9 (1.0-2.1) L 02/01/19 04:25 Triglycerides 153 mg/DL (0-149) H D 02/02/19 04:30 Cholesterol 194 mg/dL (0-199) 02/02/19 04:30 LDL Cholesterol Direct 121 mg/dL (0-129) 02/02/19 04:30 HDL Cholesterol 20 MG/DL (30-70) L 02/02/19 04:30 Vitamin B12 384 pg/mL (239-931) 02/01/19 13:46 25-OH Vitamin D Total < 12.8 NG/ML (30.0-100.0) L 02/02/19 04:30 Folate 8.9 ng/mL 02/01/19 13:46 PTH Intact Whole Molec 197 pg/mL (14-64) H 02/01/19 13:46 Venous Blood Potassium 4.4 mmol/L (3.6-5.2) 01/31/19 18:08 Urine Color Straw (YELLOW) 02/01/19 20:40 Urine Clarity Clear (Clear) 02/01/19 20:40 Urine pH 6.0 (5.0-8.0) 02/01/19 20:40 Ur Specific [place] 1.009 (1.003-1.030) 02/01/19 20:40 Urine Protein >=500 mg/dL (NEGATIVE) 02/01/19 20:40 Urine Glucose (UA) 50 mg/dL (NEGATIVE) 02/01/19 20:40 Urine Ketones Negative mg/dL (NEGATIVE) 02/01/19 20:40 Urine Blood Small (NEGATIVE) 02/01/19 20:40 Urine Nitrate Negative (NEGATIVE) 02/01/19 20:40 Urine Bilirubin Negative (NEGATIVE) 02/01/19 20:40 Urine Urobilinogen 0.2-1.0 mg/dL (0.2-1.0) 02/01/19 20:40 Ur Leukocyte Esterase Neg Mono/uL (Negative) 02/01/19 20:40 Urine RBC (Auto) 7 /hpf (0-3) H 02/01/19 20:40 Urine Microscopic WBC 1 /hpf (0-5) 02/01/19 20:40 Hyaline Casts 0-2 /hpf (0-2) 02/01/19 20:40 Ur Random Creatinine 74.1 mg/dL 02/03/19 19:30 U Random Total Protein 716.0 mg/dL (0.0-12.0) H 02/03/19 19:30 Urine Total Volume 259.8 mg/dL 02/01/19 10:25 Microalb/Creat Ratio 4723 (<30) H 02/01/19 10:25 Hep Bs Antigen Negative (NEGATIVE) 02/01/19 13:46 Hep Bs Antibody Negative (NEGATIVE) 02/01/19 13:46 Hep B Core IgM Ab Negative (NEGATIVE) 02/01/19 13:46 Hepatitis C Antibody Negative (NEGATIVE) 02/01/19 13:46 HIV 1&2 Antibody Screen Negative (NEGATIVE) 02/01/19 13:46 Influenza Typ A,B (EIA) Negative for flu a/b (NEGATIVE) 01/31/19 17:12 Attending/Attestation - Attestation I have personally seen and examined this patient.: Yes I have fully participated in the care of the patient.: Yes I have reviewed all pertinent clinical information, including history, physical exam and plan: Yes Notes (Text): Acute on Chronic CHF , systolic dysfunction, EF 55% TRISTAN on CKD Stage IV URI /Acute Bronchitis DM Type II HTN - change Lasix to 40 mg PO daily , cont Hydralazine, Norvasc 10 mg daily and Toprol XL 25 mg daily -cont 75/25 Insulin, accucheck with coverage home dose -ff up with Dr Ileana cheatham on d/c for close ff up of kidneys , explained to pt and his mother that he may eventually need Hemodialysis if renal fxn does not improve - SOB, pedal edema markedly improved - PO Augmentin 500mg bid/azithromycin for URI, Flonase - Influenza negative, CXR : no infiltrate - Home RN to supervise/educate pt regarding his meds , supervise compliance - ff up with PMD Dr Roxana cheatham
[2019-02-04] MEDS ORDERED: Epoetin Alfa 20000 UNIT/ML Inj SC ONE (14:00)
== END 2019-02-04 12:00 | disposition home health service (06) | DRG 682 ==
LOC: H.ER 16:36 → H.ERHOLD 20:23 → H.TEL 21:11
PROVIDERS: ADMIT Internal Medicine; ATTEND Internal Medicine
DX: N17.9 Acute kidney failure, unspecified (principal); I50.23 Acute on chronic systolic (congestive) heart failure; I13.2 Hypertensive heart and chronic kidney disease with heart failure and with stage 5 chronic kidney disease, or end stage renal disease; N18.5 Chronic kidney disease, stage 5; I16.0 Hypertensive urgency; J06.9 Acute upper respiratory infection, unspecified; E11.22 Type 2 diabetes mellitus with diabetic chronic kidney disease; E11.65 Type 2 diabetes mellitus with hyperglycemia; E66.9 Obesity, unspecified; Z68.37 Body mass index [BMI] 37.0-37.9, adult; E83.39 Other disorders of phosphorus metabolism; D64.9 Anemia, unspecified; E78.00 Pure hypercholesterolemia, unspecified; Z53.29 Procedure and treatment not carried out because of patient's decision for other reasons; Z79.4 Long term (current) use of insulin; Z79.84 Long term (current) use of oral hypoglycemic drugs